=== PATIENT | female | born 1955 | race Two or more races ===

== ENCOUNTER 2022-09-15 11:27 | Outpatient (REF) | payer OTHER, SELFPAY ==
--- NOTE | ~2022-09-15 | XR_ITS ---
EXAMINATION: XR WRIST, LEFT CLINICAL INFORMATION: Pain in unspecified wrist. COMPARISON: None available. TECHNIQUE: PA, lateral, and oblique views of the left wrist. FINDINGS: There is increased sclerosis in the distal radius with some periosteal reaction best appreciated along the dorsal aspect of the distal radius suggesting a subacute healing fracture, correlate with history. The distal radioulnar joint and radiocarpal joints appear intact. There are degenerative changes in the first carpometacarpal joint. XR/XR wrist LT min 3V IMPRESSION: There is increased sclerosis in the distal radius with some periosteal reaction best appreciated along the dorsal aspect of the distal radius suggesting a subacute healing fracture, correlate with history.
== END 2022-09-15 11:28 | disposition home or self-care (01) ==
LOC: HO.HOSX 11:27
PROVIDERS: Visit Provider Physician Assistant
DX: S52.502A Unspecified fracture of the lower end of left radius, initial encounter for closed fracture (principal)
CPT/HCPCS: 73110; 99202

== ENCOUNTER 2022-09-15 13:57 | Outpatient (AMB) | payer MEDICAID, SELFPAY ==
--- NOTE | 2022-09-15 14:04 | A.OFFVIS_ITS ---
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 Patient reports that her wrist feels better. She states she has been feeling better since she been icing her wrist. Denies numbness and tingling. Having concerns of left knee pain for 3 months. 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 The patient reports an injury to her wrist on 07/29/2022 status post a fall where she hit a brick wall. She states the wrist has improved. She confirms she has been icing the wrist. She denies numbn ess or tingling. She states she was seen for the wrist and was told there was nothing wrong with it and she was placed in a splint. She reports pain in the left knee for the past 3 months. 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 Review of Systems Const All systems reviewed & are unremarkable except as noted in HPI and below Physical Exam Const General: cooperative, healthy appearing, comfortable, no acute distress, well developed and alert Orientation/consciousness: patient oriented x3 HEENT Head: Yes normal to inspection, Yes normocephalic and Yes atraumatic Eyes General: appearance normal, both eyes and all related structures Resp Effort & Inspection: normal respiratory effort and able to speak in complete sentences Cardio Rate: regular rate Peripheral pulses: Peripheral pulses 2+ throughout GI Palpation (GI): Soft to palpation Skin Lesions: no lesions Rashes: no rashes Neuro General: patient oriented x3 Extrem Other: Left wrist: Normal to inspection. No ecchymosis, erythema, or edema. Able to perform full finger flexion, extension, abduction, adduction, finger cross, okay sign, and thumbs up without deficit. Able to make a closed fist. Sensation intact. Capillary refill is brisk. Radial pulse intact. Assessment & Plan Assessment & Plan (1) Fracture of left distal radius: Code(s): S52.502A - Unspecified fracture of the lower end of left radius, initial encounter for closed fracture Plan Ms. Lugo is a 66-year-old female who presents in the office today, as a new patient, for an evaluation of left wrist pain. The patient reports an injury to her wrist on 07/29/2022 status post a fall where she hit a brick wall. She states the wrist has improved. She confirms she has been icing the wrist. She denies numbness or tingling. She states she was seen for the wrist and was told there was nothing wrong with it and she was placed in a splint. She reports pain in the left knee for the past 3 months. The patient will continue to return to normal activities. She will be seen tomorrow for further evaluation of her left knee. Follow up will be PRN for the left wrist, or sooner if needed. X-rays of the left wrist which were obtained while in the office today and were reviewed by me, Aissatou Dupont PA-C, revealed evidence of a prior distal radius fracture of indeterminate age. Orders: Orders XR wrist LT min 3V 09/15/22 M25.539 - Pain in unspecified wrist Patient Instructions: Scribed for Aissatou Dupont PA-C by Laurita Wong administrative medical director, on 09/15/2022 at 1:59 pm, EST. Your attestation Coding Level of Care Code New Pt Level 4 (19804) Diagnoses Fracture of left distal radius S52.502A
== END 2022-09-15 15:01 | disposition home or self-care (01) ==
PROVIDERS: PCP Internal Medicine; Visit Provider Physician Assistant
DX: S52.502A Unspecified fracture of the lower end of left radius, initial encounter for closed fracture (principal); M25.562 Pain in left knee
CPT/HCPCS: 99204

== ENCOUNTER 2022-09-16 09:35 | Outpatient (REF) | payer OTHER, SELFPAY ==
--- NOTE | ~2022-09-16 | XR_ITS ---
X-RAY LEFT KNEE X-RAY AP STANDING VIEW BOTH KNEES CLINICAL HISTORY: Pain. COMPARISON: Radiographs right knee and AP standing view of both knees 08/31/2016. TECHNIQUE: 2 views left knee. AP standing view of both knees. FINDINGS: Moderate joint space narrowing of the medial compartment of the left knee, progressed compared to 08/31/2016. Mild joint space narrowing of the medial compartment of the right knee. Small marginal osteophytes in the medial compartment of both knees. No erosions or chondrocalcinosis. No fractures or subluxation. Small joint effusion in the left knee. XR/XR knee LT 2V IMPRESSION: 1. Moderate degenerative osteoarthritis of the medial compartment of the left knee, increased since 2017. 2. Mild degenerative osteoarthritis of the medial compartment of the right knee. 3. Small left knee joint effusion.
--- NOTE | ~2022-09-16 | XR_ITS ---
X-RAY LEFT KNEE X-RAY AP STANDING VIEW BOTH KNEES CLINICAL HISTORY: Pain. COMPARISON: Radiographs right knee and AP standing view of both knees 08/31/2016. TECHNIQUE: 2 views left knee. AP standing view of both knees. FINDINGS: Moderate joint space narrowing of the medial compartment of the left knee, progressed compared to 08/31/2016. Mild joint space narrowing of the medial compartment of the right knee. Small marginal osteophytes in the medial compartment of both knees. No erosions or chondrocalcinosis. No fractures or subluxation. Small joint effusion in the left knee. XR/XR knee standing BI IMPRESSION: 1. Moderate degenerative osteoarthritis of the medial compartment of the left knee, increased since 2017. 2. Mild degenerative osteoarthritis of the medial compartment of the right knee. 3. Small left knee joint effusion.
== END 2022-09-16 09:36 | disposition home or self-care (01) ==
LOC: HO.HOSX 09:35
PROVIDERS: PCP Internal Medicine; Visit Provider Physician Assistant
DX: M17.12 Unilateral primary osteoarthritis, left knee (principal)
CPT/HCPCS: 20610; 73560; 73565; 99212; J1040

== ENCOUNTER 2022-09-16 09:35 | Outpatient (AMB) | payer OTHER, SELFPAY ==
--- NOTE | 2022-09-16 09:42 | A.OFFVIS_ITS ---
Intake Vital Signs 09/16/22 09:44 Height 5 ft Weight 176 lb BMI 34.4 Intake Visit Reasons: New Prob - left knee pain Intake Note: Coleen is a 66 year old female who presents today for a new problem visit with complaints of left knee pain. Patient reports that she has had left knee pain for about 2 months now. She has hisotry of right knee with KI. No history of injections. She has increased pain while climbing stairs and squatting. She takes tylenol for her pain which gives mild relief, she utilized heat and cold application along with bengay. Allergies cat dander [CAT] Allergy (Unknown, Verified 09/16/22 09:47) PND,COUGH dog dander [DOG] Allergy (Unknown, Verified 09/16/22 09:47) PND,COUGH cats and dogs Allergy (Unknown, Uncoded 09/16/22 09:47) Rash HPI New Prob - left knee pain HPI Details 66-year-old female who presents in the office today for an evaluation of left knee pain. The patient reports her left knee pain began around 2 months ago, in 07/2022. She has no history of cortisone injections. She claims to have increased pain with climbing stairs and squatting. She confirms taking Tylenol for her pain with mild relief. She has also used heat and cold applications with Bengay. Patient has a right knee arthroscopy with Dr. Hamilton. 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 No ecchymosis, erythema, or joint effusion. No tenderness to palpation to the medial or lateral joint lines. Full knee extension and flexion. NVI. Psych Mental Status: mental status grossly normal Office Procedures Joint Injection/Drain Joint Injection/Drain Primary Site: left knee Prep: site was prepped using aseptic technique, ethochloride spray was applied and injection warnings given Injected: 80 mg of, DepoMedrol, with 8 mL of (2% plain lido ) and in the joint Approach Used: anterolateral Procedure: The patient tolerated the procedure well, but had some pain with the injection and there was some relief with the local anesthesia Coding 85151 - Large joint Procedure code (CPT) selection complete Results Reviewed Results Reviewed: 09/16/22 10:01 BUPivacaine MPF 0.25 % [Sensorcaine-MPF 0.25% 10 ML] 10 ml .ROUTE .STK-MED ONE Lidocaine HCl 2 % MPF [Xylocaine 2 % MPF] 5 ml .ROUTE .STK-MED ONE methylPREDNISolone acetate [DEPO-MedroL] 80 mg .ROUTE .STK-MED ONE Assessment & Plan Assessment & Plan (1) Osteoarthritis of left knee: Code(s): M17.12 - Unilateral primary osteoarthritis, left knee Plan Ms. Lugo is a 66-year-old female who presents in the office today for an evaluation of left knee pain. The patient reports her left knee pain began around 2 months ago, in 07/2022. She has no history of cortisone injections. She claims to have increased pain with climbing stairs and squatting. She confirms taking Tylenol for her pain with mild relief. She has also used heat and cold applications with Bengay. Patient has a right knee arthroscopy with Dr. Hamilton. The patient was offered a cortisone injection in the left knee with 80 mg of DepoMedrol. The patient was explained the risk, benefits, and alternatives to receiving this injection. After receiving consent for the injection, the patient had the procedure done while in office today. The patient tolerated the procedure well with no complications. I discussed the role of cortisone injections verses left knee arthroplasty. Follow up will be PRN, or sooner if needed. X-rays of the left knee which were obtained while in the office today and were reviewed by me, Aissatou Dupont PA-C, revealed left knee osteoarthritis. Orders: Orders XR knee LT 2V Today M25.569 - Pain in unspecified knee XR knee standing BI Today M25.569 - Pain in unspecified knee Patient Instructions: Scribed for Aissatou Dupont PA-C by Laurita Wong medical director/head team physician, on 09/15/2022 at 9:38 am, EST. Your attestation Coding Level of Care Code Est Pt Level 3 (16373) Diagnoses Osteoarthritis of left knee M17.12 CPT Codes Coding - 38120 Large joint: 60960 - Large joint ([id number])
[2022-09-16 09:44] VITALS: BMI 34.4
== END 2022-09-16 10:08 | disposition home or self-care (01) ==
PROVIDERS: PCP Internal Medicine; Visit Provider Physician Assistant
DX: M17.12 Unilateral primary osteoarthritis, left knee (principal)
CPT/HCPCS: 20610; 99213

== ENCOUNTER 2023-01-18 15:00 | Outpatient (RCR) | payer MEDICARE, OTHER, MEDICAID, SELFPAY | END 2023-03-03 13:58 | disposition home or self-care (01) | LOC: HO.PT 15:00 | PROVIDERS: PCP Internal Medicine; Visit Provider Student in an Organized Health Care Education/Training Program | DX: M25.512 Pain in left shoulder (principal) | CPT/HCPCS: 97012; 97014; 97110; 97140; 97161 ==

== ENCOUNTER 2023-02-18 12:41 | Outpatient (AMB) | payer OTHER, SELFPAY ==
--- NOTE | 2023-02-18 12:47 | A.OFFVIS_ITS ---
Intake Intake Visit Reasons: ov- left knee pain Intake Note: Coleen is a 66 year old female who presents today for a follow visit of left knee pain, last inj 09/16/22. Patient reports her last injection gave her 4 months of relief and would like to repeat. Allergies cat dander [CAT] Allergy (Unknown, Verified 02/18/23 12:47) PND,COUGH dog dander [DOG] Allergy (Unknown, Verified 02/18/23 12:47) PND,COUGH cats and dogs Allergy (Unknown, Uncoded 09/16/22 09:47) Rash HPI ov- left knee pain HPI Details 67-year-old female who presents in the [facility] today for a follow up of left knee pain, which began around 07/2022. The patient last saw me in the office on 09/16/2022 where she was given a cortisone injection in the left knee. She claims this injection gave her about 4 months of relief. 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 No ecchymosis, erythema, or joint effusion. No tenderness to palpation to the medial or lateral joint lines. Full knee extension and flexion. NVI. Office Procedures Joint Injection/Drain Joint Injection/Drain Primary Site: left knee Prep: site was prepped using aseptic technique, ethochloride spray was applied and injection warnings given Injected: 80 mg of, DepoMedrol, with 8 mL of (2% plain lido ) and in the joint Approach Used: anterolateral Procedure: The patient tolerated the procedure well, but had some pain with the injection and there was some relief with the local anesthesia Coding 07888 - Large joint Procedure code (CPT) selection complete Assessment & Plan Assessment & Plan (1) Osteoarthritis of left knee: Code(s): M17.12 - Unilateral primary osteoarthritis, left knee Qualifiers: Osteoarthritis type: unspecified Qualified Code(s): M17.12 - Unilateral primary osteoarthritis, left knee Plan Ms. Lugo is a 67-year-old female who presents in the office today for a follow up of left knee pain, which began around 07/2022. The patient last saw me in the office on 09/16/2022 where she was given a cortisone injection in the left knee. She claims this injection gave her about 4 months of relief. The patient was offered a cortisone injection in the left knee with 80 mg of DepoMedrol. The patient was explained the risk, benefits, and alternatives to receiving this injection. After receiving consent for the injection, the patient had the procedure done while in office today. The patient tolerated the procedure well with no complications. Follow up will be PRN, or sooner if needed. Patient Instructions: Scribed for Aissatou Dupont PA-C by Laurita Wong medical assistant supervisor, on 02/18/2023 at 12:46 pm. EST. Coding Level of Care Code Est Pt Level 3 (39840) Diagnoses Osteoarthritis of left knee, unspecified osteoarthritis type M17.12 Osteoarthritis type: unspecified CPT Codes Coding - 91593 Large joint: 41189 - Large joint ([id number])
== END 2023-02-18 13:24 | disposition home or self-care (01) ==
PROVIDERS: PCP Internal Medicine; Visit Provider Physician Assistant
DX: M17.12 Unilateral primary osteoarthritis, left knee (principal)
CPT/HCPCS: 20610; 99213

== ENCOUNTER → 2023-02-18 12:41 | Outpatient (BNVA) | payer OTHER, SELFPAY | PROVIDERS: PCP Internal Medicine; Visit Provider Physician Assistant | DX: M17.12 Unilateral primary osteoarthritis, left knee (principal) | CPT/HCPCS: 20610; 99212; J1040 ==

== ENCOUNTER 2023-03-25 09:14 | Outpatient (AMB) | payer OTHER, SELFPAY ==
--- NOTE | 2023-03-25 09:17 | MHC.OFFVIS ---
Intake Vital Signs 03/25/23 09:18 Height 5 ft Weight 174 lb BMI 34.0 Intake Visit Reasons: Newprob- B/L Shoulder trigger pain Intake Note: Coleen 67 yr old female who is right hand dominant presents today a new problem visit for bilateral shoulder pain. States her right is worse. States her pain is mainly between her shoulder blades. Pain inbetween her shoulder wakes her up at night along with numbness and tingling in right hand. Right arm ROM is good but painful. Denies any recent injury or surgery. Hx of lumbar and neck pain as well. Allergies cat dander [CAT] Allergy (Unknown, Verified 03/25/23 09:22) PND,COUGH dog dander [DOG] Allergy (Unknown, Verified 03/25/23 09:22) PND,COUGH cats and dogs Allergy (Unknown, Uncoded 03/25/23 09:22) Rash Medication List - Last Reconciled 03/25/23 by Soledad Flaherty MD cholecalciferol (vitamin D3) 10 mcg PO DAILY losartan 25 mg PO DAILY rosuvastatin 10 mg PO DAILY HPI HPI Comments History of Present Illness Details Points to right trapezius, going down to scapular area. Feels tight with ROM of shoulder. Been going on for almost a year. No inciting injuries. Past cervical epidural at [facility] helped for left side and neck pain, more than a year ago, but didn't help with the right side. Hand numbness, only bothers when sleeping, occasional. Denies weakness. Treatment done so far: therapy - just finished December 2022 goes to chiropractor - no manipulation, mostly massage injection - epidural cervical and lumbar at [facility] No EMG. No trigger point injections. No TENS unit. No injection to shoulder. No shoulder MRI. History of lower back pain, improved at [facility]. Referred here because it is closer to her house. [facility] Medical History (Updated 03/25/23 @ 09:59 by Soledad Flaherty MD) History of high blood pressure Social History (Updated 03/25/23 @ 09:23 by Layne Subramanian [facility] Alcohol intake: never Patient Tobacco Use Status: Never used Tobacco Current occupational status: retired Current occupation: right hand dominant Review of Systems Const All systems reviewed & are unremarkable except as noted in HPI and below Physical Exam Vital Signs: BMI result Body Mass Index 34.0 Constitutional: Patient appears to be in no acute distress, well nourished and well developed. Patient was appropriately conversant and oriented. Good historian. MSK: Inspection reveals appropriate head and neck positioning. Tight and tender on right upper trapezius and right rhomboids. Cervical ROM was full. Spurling's sign negative. Bilateral shoulder, elbow and wrist ROM WNL. No ligamentous laxity or crepitance. No increased effusion. Negative Brown sign, empty can sign, Speed's test. No specific abnormalities or instability found on inspection and palpation of the spine and extremities. Strength is 5/5 in all muscle groups tested. No increased tone noted. Neurological: Neurologic examination of the upper and lower extremities was nonfocal with intact sensation, muscle stretch reflexes and without focal motor deficits . Nguyen?s negative bilaterally. Babinski was down going bilaterally. Clonus was negative. Gait is non-antalgic without loss of balance. Results Reviewed Results Reviewed: I reviewed records from the following: Physical therapy notes dated 12/30/2022, [facility]-diagnosis; left shoulder pain, bilateral scapular dysfunction, right shoulder subacromial impingement. 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 Patient was referred by Norberto Singh D.O. of [facility]. Assessment & Plan Assessment & Plan (1) Myofascial pain: Code(s): M79.18 - Myalgia, other site Plan Showing signs of myofascial pain, affecting right upper trapezius and rhomboid muscles. No signs of cervical myelopathy or radiculopathy, no signs of lumbar radiculopathy, despite history of neck pain and back pain. Apparently neck and back pain has been treated appropriately at [facility]. However she continues to show myofascial pain on areas mentioned earlier. We could trial trigger point injections. Discussed with patient how this is done. To be scheduled. Patient eager to proceed. May continue chiropractor for massage and heat. Would avoid cervical manipulation. Assessment and plan discussed with patient, and patient was agreeable. All questions were answered thoroughly. Soledad Flaherty MD, JENNIFER Board Certified, [place] [employer] and Rehabilitation (ABPMR) Board Certified, [place] [employer] Electrodiagnostic Medicine (ABEM) Coding Level of Care Code New Pt Level 4 (10250) Diagnoses Myofascial pain M79.18
[2023-03-25 09:18] VITALS: BMI 34.0
== END 2023-03-25 09:39 | disposition home or self-care (01) ==
PROVIDERS: PCP Internal Medicine; Visit Provider Physical Medicine & Rehabilitation
DX: M79.18 Myalgia, other site (principal)
CPT/HCPCS: 99204

== ENCOUNTER → 2023-03-25 09:14 | Outpatient (BNVA) | payer OTHER, SELFPAY | PROVIDERS: PCP Internal Medicine; Visit Provider Physical Medicine & Rehabilitation | DX: M79.18 Myalgia, other site (principal) | CPT/HCPCS: 99202 ==

== ENCOUNTER 2023-04-14 09:46 | Outpatient (AMB) | payer OTHER, SELFPAY ==
--- NOTE | 2023-04-14 09:50 | A.OFFVIS_ITS ---
Intake Intake Visit Reasons: OV-B/L Shoulder trigger injection #1 Intake Note: Coleen is a 67 year old right hand dominant female who presents today for a follow up of her Trapezius and Rhomboid myofascial pain. Today she will be getting trigger point injection #1. She states that her pain hasnt changed since her last visit. Allergies cat dander [CAT] Allergy (Unknown, Verified 04/14/23 10:28) PND,COUGH dog dander [DOG] Allergy (Unknown, Verified 04/14/23 10:28) PND,COUGH cats and dogs Allergy (Unknown, Uncoded 03/25/23 09:22) Rash HPI HPI Comments History of Present Illness Details Here for trigger point injection #1 [facility] Medical History (Updated 03/25/23 @ 09:59 by Soledad Flaherty MD) History of high blood pressure Social History Alcohol intake: never Patient Tobacco Use Status: Never used Tobacco Current occupational status: retired Current occupation: right hand dominant Office Procedures Therapeutic Injection Therapeutic Injection Details: Trigger point injection, bilateral upper trapezius and right rhomboid. Conset obtained. Trigger points palpated on: 1 on left upper trapezius, 1 in right upper trapezius and 1 on right rhomboids. 1 ml of 2% Lidocaine injected in each site, total of 3 mL. Patient tolerated procedure well. Post-injection instructions given. [id number]-[id number] Point Injection =/>3 sites All charges added?: Procedure code (CPT) selection complete Assessment & Plan Assessment & Plan (1) Myofascial pain: Code(s): M79.18 - Myalgia, other site Plan Tolerated procedure well. Post-injection instructions given. Assessment and plan discussed with patient, and patient was agreeable. All questions were answered thoroughly. Soledad Flaherty MD, JENNIFER Board Certified, [place] [employer] and [employer] (ABPMR) Board Certified, [place] [employer] Electro[employer]ostic [employer] (ABEM) Orders: Orders Trigger Point Injection Today M79.18 - Myalgia, other site Coding Level of Care Code Procedure Only Diagnoses Myofascial pain M79.18 CPT Codes Therapeutic Injection - Ther Injection 2: [id number]-[id number] Point Injection =/>3 sites ([id number])
== END 2023-04-14 10:15 | disposition home or self-care (01) ==
PROVIDERS: PCP Internal Medicine; Visit Provider Physical Medicine & Rehabilitation
DX: M79.18 Myalgia, other site (principal); M25.511 Pain in right shoulder; M25.512 Pain in left shoulder
CPT/HCPCS: 20553

== ENCOUNTER → 2023-04-14 09:46 | Outpatient (BNVA) | payer OTHER, SELFPAY | PROVIDERS: PCP Internal Medicine; Visit Provider Physical Medicine & Rehabilitation | DX: M79.18 Myalgia, other site (principal) | CPT/HCPCS: 20553 ==

== ENCOUNTER 2023-04-21 10:49 | Outpatient (AMB) | payer OTHER, SELFPAY ==
--- NOTE | 2023-04-21 11:08 | MHC.OFFVIS ---
Intake Intake Visit Reasons: OV-B/L Shoulder trigger injection #2/ Confirmed Intake Note: Coleen is a 67 year old right hand dominant female who presents today for trigger point injection #2, patient reports that the last injection Allergies cat dander [CAT] Allergy (Unknown, Verified 04/14/23 10:28) PND,COUGH dog dander [DOG] Allergy (Unknown, Verified 04/14/23 10:28) PND,COUGH cats and dogs Allergy (Unknown, Uncoded 03/25/23 09:22) Rash HPI HPI Comments History of Present Illness Details Here for trigger point injection #2. Tolerated procedure last week, no complications. Left side feels better. Right rhomboids continue to bother her. [facility] Medical History (Updated 03/25/23 @ 09:59 by Soledad Flaherty MD) History of high blood pressure Social History Alcohol intake: never Patient Tobacco Use Status: Never used Tobacco Current occupational status: retired Current occupation: right hand dominant Office Procedures Therapeutic Injection Therapeutic Injection Details: Trigger point injection, bilateral upper trapezius and right rhomboid. Conset obtained. Trigger points palpated on: 1 on left upper trapezius, 1 on right upper trapezius and 1 on right rhomboids. 1 ml of 2% Lidocaine injected in each site, total of 3 mL. Patient tolerated procedure well. Post-injection instructions given. 78712-Kdqwhzr Point Injection =/>3 sites All charges added?: Procedure code (CPT) selection complete Assessment & Plan Assessment & Plan (1) Myofascial pain: Code(s): M79.18 - Myalgia, other site Plan Tolerated procedure well. Post-injection instructions given. Assessment and plan discussed with patient, and patient was agreeable. All questions were answered thoroughly. Soledad Flaherty MD, JENNIFER Board Certified, [place] [employer] and Rehabilitation (ABPMR) Board Certified, [place] Board [employer] Electrodiagnostic Medicine (ABEM) Orders: Orders Trigger Point Injection Today M79.18 - Myalgia, other site Coding Level of Care Code Procedure Only Diagnoses Myofascial pain M79.18 CPT Codes Therapeutic Injection - Ther Injection 2: 64759-Eerzugc Point Injection =/>3 sites ([id number])
== END 2023-04-21 11:35 | disposition home or self-care (01) ==
PROVIDERS: PCP Internal Medicine; Visit Provider Physical Medicine & Rehabilitation
DX: M79.18 Myalgia, other site (principal); M25.511 Pain in right shoulder; M25.512 Pain in left shoulder
CPT/HCPCS: 20553

== ENCOUNTER → 2023-04-21 10:49 | Outpatient (BNVA) | payer OTHER, SELFPAY | PROVIDERS: PCP Internal Medicine; Visit Provider Physical Medicine & Rehabilitation | DX: M79.18 Myalgia, other site (principal) | CPT/HCPCS: 20553 ==

== ENCOUNTER 2023-05-12 09:25 | Outpatient (REF) | payer OTHER, SELFPAY ==
--- NOTE | ~2023-05-12 | XR_ITS ---
EXAMINATION: XR CERVICAL SPINE CLINICAL INFORMATION: Radiculopathy COMPARISON: Cervical spine x-rays April 16, 2021 TECHNIQUE: 3 views of the cervical spine were obtained. FINDINGS: The cervical spine is visualized in its entirety. There is similar minimal anterolisthesis of C7 on T1. Alignment is otherwise unremarkable. Normal C1/2 articulation. Cervical vertebral body heights are maintained. There is similar mild disc space narrowing at the C5/6 and C6/7 levels. Small osteophytes are noted within the mid and lower cervical spine. There is no prevertebral soft tissue swelling. Soft tissue calcifications to the left of the cervical spine are likely vascular in nature. Visualized lung apices are well aerated. XR/XR cervical spine 3V IMPRESSION: Similar mild degenerative changes of the cervical spine. No compression deformity.
== END 2023-05-12 09:26 | disposition home or self-care (01) ==
LOC: HO.HOSX 09:25
PROVIDERS: PCP Internal Medicine; Visit Provider Physical Medicine & Rehabilitation
DX: M54.12 Radiculopathy, cervical region (principal); M79.18 Myalgia, other site; G24.3 Spasmodic torticollis
CPT/HCPCS: 72040; 99212

== ENCOUNTER 2023-05-12 09:25 | Outpatient (AMB) | payer OTHER, SELFPAY ==
--- NOTE | 2023-05-12 09:33 | MHC.OFFVIS ---
Intake Intake Visit Reasons: OV-B/L Shoulder trigger injection #3 Intake Note: Coleen is a 67 year old right hand dominant female who presents today for a follow up of her Trapezius and Rhomboid myofascial pain. Patient reports that she took a fall quite some time ago while going down stairs and hit the right shoulder blade and she is worried that this is attributing to the pain she feels in bilateral trapezius. She would like to discuss futher injections as she is unsure if she would benefit from more Allergies cat dander [CAT] Allergy (Unknown, Verified 04/14/23 10:28) PND,COUGH dog dander [DOG] Allergy (Unknown, Verified 04/14/23 10:28) PND,COUGH cats and dogs Allergy (Unknown, Uncoded 03/25/23 09:22) Rash HPI HPI Comments History of Present Illness Details Points to right trapezius, going down to scapular area. Feels tight with ROM of shoulder. Been going on for almost a year. No inciting injuries. Past cervical epidural at [facility] helped for left side and neck pain, more than a year ago, but didn't help with the right side. Hand numbness, only bothers when sleeping, occasional. Denies weakness. Treatment done so far: therapy - just finished December 2022 goes to chiropractor - no manipulation, mostly massage injection - epidural cervical and lumbar at [facility] No EMG. No trigger point injections. No TENS unit. No injection to shoulder. No shoulder MRI. History of lower back pain, improved at [facility]. Referred here because it is closer to her house. Per my exam, I thought the pain was coming from myofascial right more than left upper trapezius. She does not show any signs of rotator cuff injury or cervical radiculitis. We tried to trigger point injections. Left side feels much better. Continues to have a stubborn trigger point in right upper trapezius. She wants to explore other options. [facility] Medical History (Updated 05/12/23 @ 09:51 by Soledad Flaherty MD) History of high blood pressure Social History Alcohol intake: never Patient Tobacco Use Status: Never used Tobacco Current occupational status: retired Current occupation: right hand dominant Physical Exam Constitutional: Patient appears to be in no acute distress, well nourished and well developed. Patient was appropriately conversant and oriented. Good historian. MSK: Inspection reveals appropriate head and neck positioning. Tight and tender on right upper trapezius and right rhomboids. Cervical ROM was full. Spurling's sign negative. Bilateral shoulder, elbow and wrist ROM WNL. No ligamentous laxity or crepitance. No increased effusion. Negative Brown sign, empty can sign, Speed's test. Strength is 5/5 in all muscle groups tested. No increased tone noted. Neurological: Neurologic examination of the upper and lower extremities was nonfocal with intact sensation, muscle stretch reflexes and without focal motor deficits . Nguyen?s negative bilaterally. Gait is non-antalgic without loss of balance. 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 Possible spasmodic torticollis. We might explore possibility of doing botulinum toxin injection to right upper trapezius. Patient will think about this further. We discussed briefly how to do the injections and pros and cons. We will also further investigate cervical spine. We will do x-rays today. Possible referral to pain management for facet injections. Assessment and plan discussed with patient, and patient was agreeable. All questions were answered thoroughly. We will touch base via phone next week. Soledad Flaherty MD, JENNIFER Board Certified, [place] Board [employer] Medicine and Rehabilitation (ABPMR) Board Certified, [place] Board [employer] Electrodiagnostic Medicine (ABEM) Orders: Orders XR cervical spine 3V Today M54.12 - Radiculopathy, cervical region Coding Level of Care Code Est Pt Level 4 (98094) Diagnoses Myofascial pain M79.18 Spasmodic torticollis G24.3 Cervical radicular pain M54.12
== END 2023-05-12 11:03 | disposition home or self-care (01) ==
PROVIDERS: PCP Internal Medicine; Visit Provider Physical Medicine & Rehabilitation
DX: M79.18 Myalgia, other site (principal); G24.3 Spasmodic torticollis; M54.12 Radiculopathy, cervical region
CPT/HCPCS: 99214

== ENCOUNTER 2023-05-19 09:47 | Outpatient (AMB) | payer OTHER, SELFPAY ==
--- NOTE | 2023-05-19 09:51 | MHC.OFFVIS ---
Intake Vital Signs 05/19/23 09:53 Height 5 ft Weight 174 lb BMI 34.0 Intake Visit Reasons: OV- Dx INJ for Neck/ Shoulder pain Intake Note: Coleen is a 67 year old right hand dominant female who presents today for a follow up of her Trapezius and Rhomboid myofascial pain. Patient reports that she took a fall quite some time ago while going down stairs and hit the right shoulder blade and she is worried that this is attributing to the pain she feels in bilateral trapezius. She would like to discuss futher injections in form of botox or [facility] referral Information Interpreted: non-clinical & clinical Accompanied by: Self / Same As Patient Allergies cat dander [CAT] Allergy (Unknown, Verified 05/19/23 09:54) PND,COUGH dog dander [DOG] Allergy (Unknown, Verified 05/19/23 09:54) PND,COUGH cats and dogs Allergy (Unknown, Uncoded 05/19/23 09:54) Rash Medication List - Last Reconciled 05/19/23 by Soledad Flaherty MD cholecalciferol (vitamin D3) 10 mcg PO DAILY losartan 25 mg PO DAILY rosuvastatin 10 mg PO DAILY HPI HPI Comments History of Present Illness Details Points to right trapezius, going down to scapular area. Feels tight with ROM of shoulder. Been going on for almost a year. No inciting injuries. Past cervical epidural at [facility] helped for left side and neck pain, more than a year ago, but didn't help with the right side. Hand numbness, only bothers when sleeping, occasional. Denies weakness. Treatment done so far: therapy - just finished December 2022 goes to chiropractor - no manipulation, mostly massage injection - epidural cervical and lumbar at [facility] No EMG. No trigger point injections. No TENS unit. No injection to shoulder. No shoulder MRI. History of lower back pain, improved at [facility]. Referred here because it is closer to her house. Per my exam, I thought the pain was coming from myofascial right more than left upper trapezius. She does not show any signs of rotator cuff injury or cervical radiculitis. We have already tried trigger point injections. Left side feels much better. Continues to have a stubborn trigger point in right upper trapezius. She wants to explore other options. X-ray cervical spine did not show any fracture. Seen degenerative changes seen on past images. [facility] Medical History (Updated 05/12/23 @ 09:51 by Soledad Flaherty MD) History of high blood pressure Social History Alcohol intake: never Patient Tobacco Use Status: Never used Tobacco Current occupational status: retired Current occupation: right hand dominant Physical Exam Vital Signs: BMI result Body Mass Index 34.0 Constitutional: Patient appears to be in no acute distress, well nourished and well developed. Patient was appropriately conversant and oriented. Good historian. MSK: Inspection reveals appropriate head and neck positioning. Tight and tender on right upper trapezius and right rhomboids. Cervical ROM was full. Spurling's sign negative. Bilateral shoulder, elbow and wrist ROM WNL. No ligamentous laxity or crepitance. No increased effusion. Negative Brown sign, empty can sign, Speed's test. Strength is 5/5 in all muscle groups tested. No increased tone noted. Neurological: Neurologic examination of the upper and lower extremities was nonfocal with intact sensation, muscle stretch reflexes and without focal motor deficits . Nguyen?s negative bilaterally. Gait is non-antalgic without loss of balance. Office Procedures Therapeutic Injection Therapeutic Injection Details: Trigger point injection, right upper trapezius and rhomboids. Consult obtained. Trigger points palpated on 3 on right upper trapezius and 1 on right rhomboids. 1 ml of 2% Lidocaine injected in each site, total of 4 mL. Patient tolerated procedure well. Post-injection instructions given. 44328-Afezmuq Point Injection =/>3 sites All charges added?: Procedure code (CPT) selection complete Results Reviewed Results Reviewed: Ordering Physician: Soledad Prieto Date of Service: 05/12/23 Procedure(s): XR cervical spine 3V Accession Number(s): [id number] cc: Andree Spann MD; Soledad Prieto~ EXAMINATION: XR CERVICAL SPINE CLINICAL INFORMATION: Radiculopathy COMPARISON: Cervical spine x-rays April 16, 2021 TECHNIQUE: 3 views of the cervical spine were obtained. FINDINGS: The cervical spine is visualized in its entirety. There is similar minimal anterolisthesis of C7 on T1. Alignment is otherwise unremarkable. Normal C1/2 articulation. Cervical vertebral body heights are maintained. There is similar mild disc space narrowing at the C5/6 and C6/7 levels. Small osteophytes are noted within the mid and lower cervical spine. There is no prevertebral soft tissue swelling. Soft tissue calcifications to the left of the cervical spine are likely vascular in nature. Visualized lung apices are well aerated. XR/XR cervical spine 3V IMPRESSION: Similar mild degenerative changes of the cervical spine. No compression deformity. Assessment & Plan Assessment & Plan (1) Spasmodic torticollis: Code(s): G24.3 - Spasmodic torticollis (2) Myofascial pain: Code(s): M79.18 - Myalgia, other site Plan Continues to have stubborn trigger point on right upper trapezius. No signs of cervical radiculopathy or myelopathy on exam today. Suggested a trial series of trigger point injections again, starting today. If still does not improve, we talked about trial of botulinum toxin injection. Another option is referral to pain management for cervical facet injection, which we agreed to defer for now until we trial trigger point injections or Botox injections 1st. Patient tolerated procedure well. Assessment and plan discussed with patient, and patient was agreeable. All questions were answered thoroughly. Soledad Flaherty MD, JENNIFER Board Certified, [place] Board [employer] Physical Medicine and Rehabilitation (ABPMR) Board Certified, [place] Board of Electrodiagnostic Medicine (ABEM) Orders: Orders Trigger Point Injection Today G24.3 - Spasmodic torticollis, M79.18 - Myalgia, other site Coding Level of Care Code Est Pt Level 3 (99728) Diagnoses Spasmodic torticollis G24.3 Myofascial pain M79.18 CPT Codes Therapeutic Injection - Ther Injection 2: 69577-Jgnpmlc Point Injection =/>3 sites ([id number])
[2023-05-19 09:53] VITALS: BMI 34.0
== END 2023-05-19 10:16 | disposition home or self-care (01) ==
PROVIDERS: PCP Internal Medicine; Visit Provider Physical Medicine & Rehabilitation
DX: G24.3 Spasmodic torticollis (principal); M79.18 Myalgia, other site; M25.511 Pain in right shoulder
CPT/HCPCS: 20553; 99213

== ENCOUNTER → 2023-05-19 09:47 | Outpatient (BNVA) | payer OTHER, SELFPAY | PROVIDERS: PCP Internal Medicine; Visit Provider Physical Medicine & Rehabilitation | DX: M79.18 Myalgia, other site (principal); G24.3 Spasmodic torticollis | CPT/HCPCS: 20553; 99212 ==

== ENCOUNTER 2023-05-26 10:40 | Outpatient (AMB) | payer OTHER, SELFPAY ==
--- NOTE | 2023-05-26 10:55 | A.OFFVIS_ITS ---
Intake Intake Visit Reasons: OV - Trigger Point Injection Right Shoulder Intake Note: Coleen is a 67 year old right hand dominant female who presents today for right trigger point injection, last injection was 05/19/23. Patient reports her last injection gave her relief. She is still having discomfort when she is moving her neck. Patient would like to repeat the injection today. Allergies cat dander [CAT] Allergy (Unknown, Verified 05/26/23 10:58) PND,COUGH dog dander [DOG] Allergy (Unknown, Verified 05/26/23 10:58) PND,COUGH cats and dogs Allergy (Unknown, Uncoded 05/19/23 09:54) Rash HPI HPI Comments History of Present Illness Details Noted improvement since last injection. Here for 2nd. [facility] Medical History (Updated 05/12/23 @ 09:51 by Soledad Flaherty MD) History of high blood pressure Social History Alcohol intake: never Patient Tobacco Use Status: Never used Tobacco Current occupational status: retired Current occupation: right hand dominant Office Procedures Therapeutic Injection Therapeutic Injection Details: Trigger point injection, right upper trapezius and rhomboids. Conset obtained. Trigger points palpated, 3 on right upper trapezius and 1 on right rhomboids. 1 ml of 2% Lidocaine injected in each site, total of 4 ml. Patient tolerated procedure well. Post-injection instructions given. 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 Assessment and plan discussed with patient, and patient was agreeable. All questions were answered thoroughly. Soledad Flaherty MD, JENNIFER Board Certified, [place] Board [employer] Physical Medicine and Rehabilitation (ABPMR) Board Certified, [place] Board [employer] Electrodiagnostic Medicine (ABEM) Orders: Orders Trigger Point Injection Today M79.18 - Myalgia, other site Coding Level of Care Code Procedure Only Diagnoses Myofascial pain M79.18 Spasmodic torticollis G24.3 CPT Codes Therapeutic Injection - Ther Injection 2: 13541-Rwifcjk Point Injection =/>3 sites ([id number])
== END 2023-05-26 11:29 | disposition home or self-care (01) ==
LOC: HO.HOS 10:40
PROVIDERS: PCP Internal Medicine; Visit Provider Physical Medicine & Rehabilitation
DX: M79.18 Myalgia, other site (principal); G24.3 Spasmodic torticollis
CPT/HCPCS: 20553

== ENCOUNTER → 2023-05-26 10:40 | Outpatient (BNVA) | payer OTHER, SELFPAY | PROVIDERS: PCP Internal Medicine; Visit Provider Physical Medicine & Rehabilitation | DX: M79.18 Myalgia, other site (principal); G24.3 Spasmodic torticollis | CPT/HCPCS: 20553 ==

== ENCOUNTER 2023-06-10 10:56 | Outpatient (AMB) | payer OTHER, SELFPAY ==
--- NOTE | 2023-06-10 11:00 | MHC.OFFVIS ---
Intake Intake Visit Reasons: OV - Trigger Point Injection Right Shoulder Intake Note: Coleen is a 67 year old female who presents to the office today for a trigger point injection in her right shoulder. Pts last injection was 05/26/23 and she states that she doesnt have any more numbness in her hands and she states her shoulders feel stronger. Allergies cat dander [CAT] Allergy (Unknown, Verified 06/10/23 11:02) PND,COUGH dog dander [DOG] Allergy (Unknown, Verified 06/10/23 11:02) PND,COUGH cats and dogs Allergy (Unknown, Uncoded 06/10/23 11:02) Rash Medication List - Last Reconciled 06/10/23 by Soledad Flaherty MD cholecalciferol (vitamin D3) 10 mcg PO DAILY losartan 25 mg PO DAILY rosuvastatin 10 mg PO DAILY HPI HPI Comments History of Present Illness Details Noted improvement since last injection, less tight on right upper trapezius, no more tingling on RUE. Did feel more tightness on left rhomboids. Here for 3nd. [facility] Medical History History of high blood pressure Social History Alcohol intake: never Patient Tobacco Use Status: Never used Tobacco Current occupational status: retired Current occupation: right hand dominant Office Procedures Therapeutic Injection Therapeutic Injection Details: Trigger point injection, right upper trapezius, right rhomboids, left rhomboids. Consent obtained. Trigger points palpated on right upper trapezius, right rhomboids, left rhomboids. 1 ml of 2% Lidocaine injected in each site, total of 3 mL. Patient tolerated procedure well. Post-injection instructions given. 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 Assessment and plan discussed with patient, and patient was agreeable. All questions were answered thoroughly. She will call us in 2 weeks if redevelops trigger point on right upper trapezius. If so, we will consider botulinum toxin injection. Soledad Flaherty MD, JENNIFER Board Certified, [place] Board of Physical Medicine and Rehabilitation (ABPMR) Board Certified, [place] Board of Electrodiagnostic Medicine (ABEM) Orders: Orders Trigger Point Injection Today M79.18 - Myalgia, other site Coding Level of Care Code Procedure Only Diagnoses Myofascial pain M79.18 Spasmodic torticollis G24.3 CPT Codes Therapeutic Injection - Ther Injection 2: 08850-Njmmgux Point Injection =/>3 sites ([id number])
== END 2023-06-10 11:36 | disposition home or self-care (01) ==
PROVIDERS: PCP Internal Medicine; Visit Provider Physical Medicine & Rehabilitation
DX: M25.511 Pain in right shoulder (principal); M25.512 Pain in left shoulder; M79.18 Myalgia, other site; G24.3 Spasmodic torticollis
CPT/HCPCS: 20553

== ENCOUNTER → 2023-06-10 10:56 | Outpatient (BNVA) | payer OTHER, SELFPAY | PROVIDERS: PCP Internal Medicine; Visit Provider Physical Medicine & Rehabilitation | DX: M79.18 Myalgia, other site (principal); G24.3 Spasmodic torticollis | CPT/HCPCS: 20553 ==

== ENCOUNTER 2023-07-20 15:00 | Outpatient (REF) | payer OTHER, SELFPAY ==
--- NOTE | 2023-07-20 15:05 | EMG_ITS ---
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 Trigger point palpable on right upper trapezius. TOXIN USED: Botox PROCEDURE: The procedure was explained to the patient/caregiver, and informed consent was obtained. The patient sat on bed. Trapezius muscles were cleansed with betadine in the usual sterile manner. A 28 gauge needle electrode was used. Muscle Units per site Number of sites Units per muscle Right upper trapezius 15 3 45 Left upper trapezius 15 1 15 EMG-guidance was used during the injection. A total of 60 units injected. 40 units wastage. Vial size: 100 units per vial Dilution: 100 units per 1 ml of preservative free saline The patient tolerated the procedure well without complications. The patient was observed for 30 minutes, before being discharged with post procedure instructions. CODING: CPT code: 65431 neck, exclud larynx modifier 50 bilateral Wastage: CHIVO Guidance code: 56446 EMG guidance for chemodenervation J code: Botox J0585 [facility] code: 8577-4255-83 Lot #: [id number] [facility]
== END 2023-07-20 15:01 | disposition home or self-care (01) ==
LOC: HO.NEURO 15:00
PROVIDERS: PCP Internal Medicine; Visit Provider Physical Medicine & Rehabilitation
DX: G24.3 Spasmodic torticollis (principal)
CPT/HCPCS: 64616; 95874; J0585

== ENCOUNTER → 2023-07-20 15:00 | Outpatient (BNV) | payer OTHER, SELFPAY | PROVIDERS: PCP Internal Medicine; Visit Provider Physical Medicine & Rehabilitation | DX: G24.3 Spasmodic torticollis (principal) | CPT/HCPCS: 64616; 95874 ==

== ENCOUNTER 2023-08-19 08:47 | Outpatient (AMB) | payer OTHER, SELFPAY ==
--- NOTE | 2023-08-19 08:49 | MHC.OFFVIS ---
Vital Signs 08/19/23 08:52 Height 5 ft Weight 174 lb BMI 34.0 Intake Visit Reasons: Follow up, Botox injection 07/20/23 Intake Note: Coleen is a 67 year old female who presents today for a follow up visit s/p Botox injection 07/20/23. Patient reports the injections have helped her a lot and she is doing well. Allergies cat dander [CAT] Allergy (Unknown, Verified 08/19/23 08:53) PND,COUGH dog dander [DOG] Allergy (Unknown, Verified 08/19/23 08:53) PND,COUGH cats and dogs Allergy (Unknown, Uncoded 06/10/23 11:02) Rash Medication List - Last Reconciled 08/19/23 by Soledad Flaherty MD cholecalciferol (vitamin D3) 10 mcg PO DAILY losartan 25 mg PO DAILY rosuvastatin 10 mg PO DAILY HPI Comments Details: Post botulinum toxin injection follow up. DATE OF PROCEDURE: 07/20/23 PROCEDURE PERFORMED: Botulinum toxin chemodenervation DIAGNOSIS: cervical dystonia/spasmodic torticollis ICD10: G24.3 INDICATION: spasmodic torticollis PREVIOUS TREATMENT AND RESPONSE: Trigger point injections and physical therapy without lasting response EXAM ON DAY OF PROCEDURE: Tight on upper trapezius, right worse than left. Trigger point palpable on right upper trapezius. TOXIN USED: Botox PROCEDURE: Muscle Units per site Number of sites Units per muscle Right upper trapezius 15 3 45 Left upper trapezius 15 1 15 EMG-guidance was used during the injection. A total of 60 units injected. 40 units wastage. Coleen says that she feels much better, no pain on trapezius anymore. No headaches. She is happy with improvement. No side effects or complications. She does have soreness on rhomboids which was a previous complaint and she notes that when she exercises and pays attention to posture, it gets better. [facility] Medical History History of high blood pressure Social History Alcohol intake: never Patient Tobacco Use Status: Never used Tobacco Current occupational status: retired Current occupation: right hand dominant Physical Exam Vital Signs: BMI result Body Mass Index 34.0 Constitutional: Patient appears to be in no acute distress, well nourished and well developed. Patient was appropriately conversant and oriented. Good historian. MSK: Inspection reveals appropriate head and neck positioning. No more trigger points on trapezius. Tender on rhomboids bilateral, localized area. Cervical ROM was full. Spurling's sign negative. Bilateral shoulder, elbow and wrist ROM WNL. No ligamentous laxity or crepitance. No increased effusion. Negative Brown sign, empty can sign, Speed's test. Strength is 5/5 in all muscle groups tested. No increased tone noted. Neurological: Neurologic examination of the upper and lower extremities was nonfocal with intact sensation, muscle stretch reflexes and without focal motor deficits . Nguyen?s negative bilaterally. Gait is non-antalgic without loss of balance. Office Procedures Therapeutic Injection Therapeutic Injection Details: Trigger point injection, bilateral rhomboids. Conset obtained. Trigger points palpated on bilateral rhomboids. 1 ml of 2% Lidocaine injected in each site, total of 2 mL. Patient tolerated procedure well. Post-injection instructions given. 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 No more pain or tightness there. Discussed that relief may last up to 3 months, maybe more. We would work on prior auth and scheduling her again for injection in October, but we will see if we'll need to push it back further if she is still feeling good. As for rhomboids, performed trigger point injections today. She tolerated well. Continue exercise. Watch posture. Assessment and plan discussed with patient, and patient was agreeable. All questions were answered thoroughly. Soledad Flaherty MD, JENNIFER Board Certified, [place] [employer] and Rehabilitation (ABPMR) Board Certified, [place] Board [employer] Electrodiagnostic Medicine (ABEM) Orders: Orders Trigger Point Injection Today G24.3 - Spasmodic torticollis, M79.18 - Myalgia, other site Coding Level of Care Code Est Pt Level 4 (58717) Diagnoses Myofascial pain M79.18 Spasmodic torticollis G24.3 CPT Codes Therapeutic Injection - Ther Injection 1: 39865-Syurscm Point Injection 1 or 2 sites ([id number])
[2023-08-19 08:52] VITALS: BMI 34.0
== END 2023-08-19 09:17 | disposition home or self-care (01) ==
PROVIDERS: PCP Internal Medicine; Visit Provider Physical Medicine & Rehabilitation
DX: M79.18 Myalgia, other site (principal); G24.3 Spasmodic torticollis
CPT/HCPCS: 20552; 99214

== ENCOUNTER → 2023-08-19 08:47 | Outpatient (BNVA) | payer OTHER, SELFPAY | PROVIDERS: PCP Internal Medicine; Visit Provider Physical Medicine & Rehabilitation | DX: M79.18 Myalgia, other site (principal); G24.3 Spasmodic torticollis | CPT/HCPCS: 20552; 99212 ==

== ENCOUNTER 2023-08-27 07:54 | Outpatient (AMB) | payer OTHER, SELFPAY ==
--- NOTE | 2023-08-27 07:59 | A.OFFVIS_ITS ---
Vital Signs 08/27/23 08:11 Height 5 ft Weight 174 lb BMI 34.0 Intake Visit Reasons: Inj-Left knee injection-last inj 02/18/23 Intake Note: Coleen is a 66 year old female who presents today for a repeat injection for her left knee pain, last inj 02/18/23. Patient reports her last injection gave her about 5 - 6 months relief and would like to repeat. Allergies cat dander [CAT] Allergy (Unknown, Verified 08/27/23 08:10) PND,COUGH dog dander [DOG] Allergy (Unknown, Verified 08/27/23 08:10) PND,COUGH cats and dogs Allergy (Unknown, Uncoded 06/10/23 11:02) Rash HPI HPI Inj-Left knee injection-last inj 02/18/23: Details: 67-year-old female who presents in the office today for a follow-up of left knee pain. I last saw the patient in the office on 02/18/2023, when she was administered with a left knee cortisone injection. ? While in the office today the patient reports that the last cortisone injection in the left knee provided her relief for about 5-6 months. She would like to repeat the left knee injection today.? [facility] Medical History History of high blood pressure Social History Alcohol intake: never Patient Tobacco Use Status: Never used Tobacco Current occupational status: retired Current occupation: right hand dominant Review of Systems Const All systems reviewed & are unremarkable except as noted in HPI and below Physical Exam Vital Signs: BMI result Body Mass Index 34.0 Const General: cooperative, healthy appearing and no acute distress Resp Effort & Inspection: normal respiratory effort and able to speak in complete sentences Cardio Rate: regular rate Peripheral pulses: Peripheral pulses 2+ throughout GI Palpation (GI): Soft to palpation Skin Lesions: no lesions Rashes: no rashes Extrem Other: Left knee: Normal to inspection. No ecchymosis, erythema, or joint effusion. No tenderness to palpation to the medial or lateral joint lines. Full knee extension and flexion. NVI. Office Procedures Joint Injection/Drain Joint Injection/Drain Primary Site: left knee Prep: site was prepped using aseptic technique, ethochloride spray was applied and injection warnings given Injected: 80 mg of, DepoMedrol, with 8 mL of (2% plain lido ) and in the joint Approach Used: anterolateral Procedure: The patient tolerated the procedure well, but had some pain with the injection and there was some relief with the local anesthesia Coding - Large joint Procedure code (CPT) selection complete Assessment & Plan Assessment & Plan (1) Osteoarthritis of left knee: Code(s): M17.12 - Unilateral primary osteoarthritis, left knee Category: Medical Qualifiers: Osteoarthritis type: unspecified Qualified Code(s): M17.12 - Unilateral primary osteoarthritis, left knee Plan Ms. Lugo is a 67-year-old female who presents in the office today for a follow- up of left knee pain. I last saw the patient in the office on 02/18/2023, when she was administered with a left knee cortisone injection. ? While in the office today the patient reports that the last cortisone injection in the left knee provided her relief for about 5-6 months. She would like to repeat the left knee injection today.? ? The patient was offered a?cortisone injection in the left knee with 80 mg of DepoMedrol. The patient was explained the risk, benefits, and alternatives to receiving this injection. After receiving consent for the injection, the patient had the procedure done while in the office today. The patient tolerated the procedure well with no complications. Follow-up will be PRN, or sooner if needed.? Patient Instructions: Scribed by Vincent Woods biomedical technician, for Aissatou Dupont PA-C on 08/27/2023 at?9:15 AM EST. Coding Level of Care Code Est Pt Level 3 (10983) Diagnoses Osteoarthritis of left knee, unspecified osteoarthritis type M17.12 Osteoarthritis type: unspecified CPT Codes Coding - Large joint: 55531 - Large joint ([id number])
[2023-08-27 08:11] VITALS: BMI 34.0
== END 2023-08-27 08:11 | disposition home or self-care (01) ==
PROVIDERS: PCP Internal Medicine; Visit Provider Physician Assistant
DX: M17.12 Unilateral primary osteoarthritis, left knee (principal)
CPT/HCPCS: 20610; 99213

== ENCOUNTER → 2023-08-27 07:54 | Outpatient (BNVA) | payer OTHER, SELFPAY | PROVIDERS: PCP Internal Medicine; Visit Provider Physician Assistant | DX: M17.12 Unilateral primary osteoarthritis, left knee (principal) | CPT/HCPCS: 20610; 99212; J1010 ==

== ENCOUNTER 2023-10-12 12:42 | Outpatient (REF) | payer OTHER, SELFPAY ==
--- NOTE | 2023-10-12 12:48 | EMG_ITS ---
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 PROCEDURE: The procedure was explained to the patient/caregiver, and informed consent was obtained. The patient sat on bed.? Trapezius muscles were cleansed with betadine in the usual sterile manner. A 30 gauge needle electrode was used. Muscle Units per site Number of sites Units per muscle Right upper trapezius 15 3 45 Left upper trapezius 15 1 15 ? ? EMG-guidance was used during the injection. A total of 60 units injected. 40 units wastage. Vial size: 100 units per vial?? Dilution: 100 units per 1 ml of preservative free saline The patient tolerated the procedure well without complications. The patient was observed for a few minutes, before being discharged with post procedure instructions. CODING: CPT code: 79800 neck, exclud larynx, modifier 50 bilateral Wastage: Guidance code: 09966 EMG guidance for chemodenervation J code: Botox J0585? NDC code:? [id number] Lot #: [id number] Expiration date: [facility]
== END 2023-10-12 12:43 | disposition home or self-care (01) ==
LOC: HO.NEURO 12:42
PROVIDERS: PCP Internal Medicine; Visit Provider Physical Medicine & Rehabilitation
DX: G24.3 Spasmodic torticollis (principal)
CPT/HCPCS: 64612; 64616; 95874; J0585

== ENCOUNTER → 2023-10-12 12:48 | Outpatient (BNV) | payer OTHER, SELFPAY | PROVIDERS: PCP Internal Medicine; Visit Provider Physical Medicine & Rehabilitation | DX: G24.3 Spasmodic torticollis (principal) | CPT/HCPCS: 64616; 95874 ==

== ENCOUNTER 2023-10-13 08:37 | Outpatient (REF) | payer OTHER, SELFPAY | END 2023-10-13 08:38 | disposition home or self-care (01) | LOC: HO.HOSX 08:37 | PROVIDERS: Visit Provider Physical Medicine & Rehabilitation | DX: Z13.89 Encounter for screening for other disorder (principal) ==

== ENCOUNTER 2023-10-14 08:37 | Outpatient (REF) | payer OTHER, SELFPAY ==
--- NOTE | ~2023-10-14 | XR_ITS ---
EXAMINATION: XR LUMBOSACRAL SPINE CLINICAL INFORMATION: Back pain, unspecified. COMPARISON: None available. Please note, due to [facility] [employer] contractual, systems, and staffing issues, an [facility] radiologist was not available for review and dictation of this case until 11/29/2023. TECHNIQUE: Three views of the lumbosacral spine. FINDINGS: No fracture or suspicious lytic or blastic bone lesion. There is normal coronal alignment, and normal lordosis. There is a 4 mm anterolisthesis L4 on L5. This appears based on degenerative facet changes. Disc spaces are largely preserved. No significant narrowing. Degenerative facet changes L4-5 and L5-S1 noted bilaterally. No SI joint abnormality noted. Sacrum is intact. No soft tissue abnormalities. XR/XR lumbar spine 2-3V IMPRESSION: 1. No acute findings lumbosacral spine. 2. 4 mm degenerative anterolisthesis L4 on L5. 3. Degenerative facet changes noted at L4-5 and L5-S1. Electronically signed by: Benny Hein MD 11/29/2023 01:21 PM EDT
== END 2023-10-14 08:38 | disposition home or self-care (01) ==
LOC: HO.HOSX 08:37
PROVIDERS: Visit Provider Physical Medicine & Rehabilitation
DX: M54.59 Other low back pain (principal)
CPT/HCPCS: 72100; 99212

== ENCOUNTER 2023-10-14 10:29 | Outpatient (AMB) | payer OTHER, SELFPAY ==
--- NOTE | 2023-10-14 10:38 | MHC.OFFVIS ---
Intake Visit Reasons: Newprob-B/L lower back pain Intake Note: Coleen is a 67 year old female who presents to the office today for a new problem visit with complaints B/L lower back pain. Cervical spine X-ray done 05/12/23. Patient reports that she has had ongoing lower back pain for about 2 years now. She was being treated with [facility] who was doing lumbar spine injections, most recent being about 1.5 years ago. Pain is felt across the entire lower back and occasionally will radiate down bilateral legs. The left leg is worse than the right. She utilizes heat and ice application which does provide her with releif. Pain increases with prolonged standing and walking. Allergies cat dander [CAT] Allergy (Unknown, Verified 10/14/23 10:44) PND,COUGH dog dander [DOG] Allergy (Unknown, Verified 10/14/23 10:44) PND,COUGH cats and dogs Allergy (Unknown, Uncoded 10/14/23 10:44) Rash HPI Comments Details: Patient known to me for neck pain, spasmodic torticollis, being treated with botulinum toxin injections. Here for separate issue of lower back pain. Chronic back pain for at least 2 years. Started after a fall, no vertebral fracture at that time. Followed with [facility]. MRI done at [place]. She had epidural and facet injections, helped. Then she had, 1 1/2 years ago, procedure at [facility] which possibly was ablation the way patient described. Good relief until 2 months ago. Pain now across lower back, sometimes only would go to left posterior thigh. No numbness on feet. [facility] Medical History (Updated 10/14/23 @ 11:00 by Soledad Flaherty MD) Lumbar facet joint pain History of high blood pressure Social History Alcohol intake: never Patient Tobacco Use Status: Never used Tobacco Current occupational status: retired Current occupation: right hand dominant Physical Exam Constitutional: Patient appears to be in no acute distress, well nourished and well developed. Patient was appropriately conversant and oriented. Good historian. MSK: No specific abnormalities found on inspection of the spine and all extremities. Tender lower lumbar facets. Nontender paraspinals, quadratus lumborum, SI or GT. Lumbar ROM was full. Straight-leg raising test negative. FABERE test positive back pain. Strength is 5/5 in all muscle groups tested. No increased tone noted. Neurological: Neurologic examination of the upper and lower extremities was nonfocal with intact sensation, muscle stretch reflexes and without focal motor deficits . Nguyen?s negative bilaterally. Babinski was down going bilaterally. Clonus was negative. Gait is non-antalgic without loss of balance. Results Reviewed Results Reviewed: Lumbar x-rays done today showed mild spondylolisthesis L4-5. Disc spaces were preserved. Assessment & Plan Assessment & Plan (1) Lumbar facet joint pain: Code(s): M54.59 - Other low back pain Category: Medical Plan She is doing well post Botox injection for cervical/spasmodic torticollis. Next injection is in 3 months. We will do a telehealth follow-up 1 month prior to that. As for her back pain, appears to be lumbar facet mediated pain. She used to go to [facility] and sounds like she received radiofrequency ablation. Seems to have lasted her at least 18 months but pain started coming back 2 months ago. It is nonradicular, axial back pain. Informed her unfortunately that I do not do such procedures and I would have to refer her to our pain management. She would like to transfer her care to [place]. Assessment and plan discussed with patient, and patient was agreeable. All questions were answered thoroughly. Soledad Flaherty MD, JENNIFER Board Certified, [place] Board [employer] Medicine and Rehabilitation (ABPMR) Board Certified, [place] Board [employer] Electrodiagnostic Medicine (ABEM) Orders: Orders XR lumbar spine 2-3V Today M54.9 - Dorsalgia, unspecified Referrals Pain Management Referral M54.59 - Other low back pain Coding Level of Care Code Est Pt Level 3 (61126) Diagnoses Lumbar facet joint pain M54.59
== END 2023-10-14 11:07 | disposition home or self-care (01) ==
PROVIDERS: PCP Internal Medicine; Visit Provider Physical Medicine & Rehabilitation
DX: M54.59 Other low back pain (principal)
CPT/HCPCS: 99213

== ENCOUNTER → 2023-10-14 10:33 | Outpatient (BNV) | payer OTHER, SELFPAY | PROVIDERS: Visit Provider Radiology Diagnostic Radiology | DX: M43.16 Spondylolisthesis, lumbar region (principal) | CPT/HCPCS: 72100 ==

== ENCOUNTER 2024-05-22 13:46 | Outpatient (AMB) | payer OTHER, SELFPAY ==
--- NOTE | 2024-05-22 13:53 | MHC.OFFVIS ---
Vital Signs 05/22/24 14:01 Height 5 ft Weight 174 lb BMI 34.0 Intake Visit Reasons: Inj-Left knee injection-last inj 08/27/23 Intake Note: Coleen is a 68 year old female who presents today for a follow up visit for her left knee OA. Patient received a left knee injection on 08/27/23 reports it offered relief. She would like to repeat this injection today. Allergies cat dander [CAT] Allergy (Unknown, Verified 05/22/24 14:01) PND,COUGH dog dander [DOG] Allergy (Unknown, Verified 05/22/24 14:01) PND,COUGH cats and dogs Allergy (Unknown, Uncoded 10/14/23 10:44) Rash HPI HPI Inj-Left knee injection-last inj 08/27/23: Details: Ms. Lugo is a 68-year-old female who presents to the office today for left knee pain. Last cortisone injection was 08/27/2023. Patient had great relief with this injection would like to repeat injection today. [facility] Medical History (Updated 10/14/23 @ 11:00 by Soledad Flaherty MD) Lumbar facet joint pain History of high blood pressure Social History Alcohol intake: never Patient Tobacco Use Status: Never used Tobacco Current occupational status: retired Current occupation: right hand dominant Physical Exam Vital Signs: BMI result Body Mass Index 34.0 Office Procedures AMB Joint Injection/Aspiration Joint Injection/Aspiration Primary Site: left knee Prep: site was prepped using aseptic technique, ethochloride spray was applied and injection warnings given Injected: 80 mg of, DepoMedrol, with 8 mL of (2% plain lido ) and in the joint Approach Used: anterolateral Procedure: The patient tolerated the procedure well, but had some pain with the injection and there was some relief with the local anesthesia Coding 60385 - Large joint Procedure code (CPT) selection complete Assessment & Plan Assessment & Plan (1) Osteoarthritis of left knee: Code(s): M17.12 - Unilateral primary osteoarthritis, left knee Category: Medical Qualifiers: Osteoarthritis type: unspecified Qualified Code(s): M17.12 - Unilateral primary osteoarthritis, left knee Plan The patient was offered a cortisone injection in the left knee with 80 mg of DepoMedrol. The patient was explained the risks, benefits, and alternatives to receiving this injection. After receiving consent for the injection, the patient had the procedure done while in the office today. The patient tolerated the procedure well with no complications. Follow-up will be p.r.n., or sooner if needed Coding Level of Care Code Est Pt Level 3 (40500) Diagnoses Osteoarthritis of left knee, unspecified osteoarthritis type M17.12 Osteoarthritis type: unspecified CPT Codes Coding - 82783 Large joint: 22635 - Large joint ([id number])
[2024-05-22 14:01] VITALS: BMI 34.0
== END 2024-05-22 15:48 | disposition home or self-care (01) ==
LOC: HO.HOS 13:47
PROVIDERS: Visit Provider Physician Assistant
DX: M17.12 Unilateral primary osteoarthritis, left knee (principal)
CPT/HCPCS: 20610

== ENCOUNTER → 2024-05-22 13:46 | Outpatient (BNVA) | payer OTHER, SELFPAY | PROVIDERS: Visit Provider Physician Assistant | DX: M17.12 Unilateral primary osteoarthritis, left knee (principal) | CPT/HCPCS: 20610; J1010; J2003 ==

== ENCOUNTER 2024-08-25 13:16 | Outpatient (AMB) | payer OTHER, SELFPAY ==
--- NOTE | 2024-08-25 13:27 | MHC.OFFVIS ---
Intake Visit Reasons: Left knee injection-last inj 05/22/24 Intake Note: While the office today, the patient reports that she has been more active recently as her was diagnosed with dementia. Her previous injections lasted her roughly a year but this most recent injection. Wore off sooner due to her activity level. Allergies cat dander (CAT) Allergy (Unknown, Verified 05/22/24 14:01) PND,COUGH dog dander (DOG) Allergy (Unknown, Verified 05/22/24 14:01) PND,COUGH cats and dogs Allergy (Unknown, Uncoded 10/14/23 10:44) Rash HPI HPI Left knee injection-last inj 05/22/24: Details: Ms. Lugo is a 68-year-old female who presents to the office today for left knee pain due to osteoarthritis. Her last cortisone injection was 05/22/2024. She reports that her was recently diagnosed with dementia and has been more active. Prior injections have lasted roughly 1 year but due to her activity level this most recent injection only lasted her 3 months. [facility] Medical History (Updated 10/14/23 @ 11:00 by Soledad Flaherty MD) Lumbar facet joint pain History of high blood pressure Social History Alcohol intake: never Patient Tobacco Use Status: Never used Tobacco Current occupational status: retired Current occupation: right hand dominant Review of Systems Const All systems reviewed & are unremarkable except as noted in HPI and below Office Procedures AMB Joint Injection/Aspiration Joint Injection/Aspiration Primary Site: left knee Prep: site was prepped using aseptic technique, ethochloride spray was applied and injection warnings given Injected: 80 mg of, DepoMedrol, with 8 mL of (2% plain lido ) and in the joint Approach Used: anterolateral Procedure: The patient tolerated the procedure well, but had some pain with the injection and there was some relief with the local anesthesia Coding 39998 - Large joint Procedure code (CPT) selection complete Assessment & Plan Assessment & Plan (1) Osteoarthritis of left knee: Code(s): M17.12 - Unilateral primary osteoarthritis, left knee Category: Medical Qualifiers: Osteoarthritis type: unspecified Qualified Code(s): M17.12 - Unilateral primary osteoarthritis, left knee Plan While the office today, the patient reports that she has been more active recently as her was diagnosed with dementia. Her previous injections lasted her roughly a year but this most recent injection wore off in roughly 3 months due to her activity level. The patient was offered a cortisone injection in the left knee with 80 mg of DepoMedrol. The patient was explained the risks, benefits, and alternatives to receiving this injection. After receiving consent for the injection, the patient had the procedure done while in the office today. The patient tolerated the procedure well with no complications. Follow-up will be PRN, or sooner if needed Coding Level of Care Code Est Pt Level 3 (37793) Diagnoses Osteoarthritis of left knee, unspecified osteoarthritis type M17.12 Osteoarthritis type: unspecified CPT Codes Coding - 45101 Large joint: 87322 - Large joint ([id number])
== END 2024-08-25 13:33 | disposition home or self-care (01) ==
LOC: HO.HOS 13:16
PROVIDERS: Visit Provider Physician Assistant
DX: M17.12 Unilateral primary osteoarthritis, left knee (principal)
CPT/HCPCS: 20610; 99213

== ENCOUNTER → 2024-08-25 13:16 | Outpatient (BNVA) | payer OTHER, SELFPAY | PROVIDERS: Visit Provider Physician Assistant | DX: M17.12 Unilateral primary osteoarthritis, left knee (principal) | CPT/HCPCS: 20610; 99212; J1010; J2003 ==

== ENCOUNTER 2024-11-28 13:20 | Outpatient (AMB) | payer OTHER, SELFPAY ==
--- NOTE | 2024-11-28 13:55 | A.OFFVIS_ITS ---
Intake Visit Reasons: Inj-Lt knee injection-last inj 08/25/24 Intake Note: Coleen is a 69 year old female who presents today for a repeat injection for her left knee, last injection 08/25/2024. Allergies cat dander (CAT) Allergy (Unknown, Verified 05/22/24 14:01) PND,COUGH dog dander (DOG) Allergy (Unknown, Verified 05/22/24 14:01) PND,COUGH cats and dogs Allergy (Unknown, Uncoded 10/14/23 10:44) Rash HPI HPI Inj-Lt knee injection-last inj 08/25/24: Details: Ms. Lugo presents to the office today for chronic left knee pain from osteoarthritis. She receives routine cortisone injections which helped to alleviate her pain. Last cortisone injection was on 08/25/2024. She would like to repeat injections while in the office today. [facility] Medical History (Updated 10/14/23 @ 11:00 by Soledad Flaherty MD) Lumbar facet joint pain History of high blood pressure Social History Alcohol intake: never Patient Tobacco Use Status: Never used Tobacco Current occupational status: retired Current occupation: right hand dominant Review of Systems Const All systems reviewed & are unremarkable except as noted in HPI and below Physical Exam Const General: cooperative, healthy appearing and no acute distress Resp Effort & Inspection: normal respiratory effort and able to speak in complete sentences Extrem Other: Left knee: Normal to inspection. No ecchymosis, erythema, or joint effusion. No tenderness to palpation to the medial or lateral joint lines. Full knee extension and flexion. NVI. Office Procedures AMB Joint Injection/Aspiration Joint Injection/Aspiration Primary Site: left knee Prep: site was prepped using aseptic technique, ethochloride spray was applied and injection warnings given Injected: 40 mg of, with 3 mL of, 1% plain lidocaine, 0.25% bupivacaine, in the joint and decadron Approach Used: anterolateral Procedure: The patient tolerated the procedure well, but had some pain with the injection and there was some relief with the local anesthesia Coding 99240 - Large joint Procedure code (CPT) selection complete Assessment & Plan Assessment & Plan (1) Osteoarthritis of left knee: Code(s): M17.12 - Unilateral primary osteoarthritis, left knee Category: Medical Qualifiers: Osteoarthritis type: unspecified Qualified Code(s): M17.12 - Unilateral primary osteoarthritis, left knee Plan Ms. Jarrell is an 83-year-old right-hand dominant female who presents to the office today for evaluation of a left shoulder injury that she sustained on 11/06/2024. Patient reports that she lost her balance when she was standing near the sink and landed on her left shoulder. Patient reports that she has a history of vertigo. Her pain is located along the lateral aspect of the shoulder. She has been taking Tylenol and gabapentin which was prescribed by Rheumatology with mild relief. Patient had x-rays that were-01-30 of the left revealed a left clavicle fracture. The patient was offered a cortisone injection in the right knee. The patient was explained the risks, benefits, and alternatives to receiving this injection. After receiving consent for the injection, the patient had the procedure done while in the office today. The patient tolerated the procedure well with no complications. Follow-up will be PRN, or sooner if needed Coding Level of Care Code Est Pt Level 3 (32384) Diagnoses Osteoarthritis of left knee, unspecified osteoarthritis type M17.12 Osteoarthritis type: unspecified CPT Codes Coding - 48295 Large joint: 64077 - Large joint ([id number])
--- OUTSIDE RECORDS SUMMARY | 2024-11-28 16:22 | XMS_ITS | Patient Health Record ---
Author Organization [facility] Address [address] [place] [address] Care Team Providers Care Set Key Driver Name Role Phone Tala SERVIN, Sherman Primary Care Provider Sean Olivier [phone] Reason For Referral No Information Plan Of Treatment No Information
--- OUTSIDE RECORDS SUMMARY | 2024-11-28 16:22 | XMS_ITS | Clinical Summary ---
Author Organization [facility] Address [address] [place] [address] Care Team Providers Care Territory Sales Manager Name Role Phone Andree Rebolledo MD Primary Care Prov ider Allergies Active Allergy Reactions Criticality Noted Date Comments Duloxetine Hcl 11/30/2018 Cymbalta Nausea and abdominal pain Fluoxetine 11/30/2018 Prozac vomiting Other 01/12/2014 Dogs Cats Medications cholecalciferol (VITAMIN D-3) 25 mcg (1,000 unit) tablet Take by mouth. 9 Active rosuvastatin (CRESTOR) 10 mg tablet Take 1 Tablet by mouth daily. 4 Active cetirizine (ZyrTEC) 10 mg tablet Take 1 tablet (10 mg total) by mouth 1 (one) time each day. 90 each 3 5 07/12/19 26 Active cyclobenzaprine (FLEXERIL) 10 mg tabletIndicatio ns:Acute pain of both shoulders Take 1 tablet (10 mg total) by mouth 2 (two) times a day if needed for muscle spasms. 30 tablet 5 Active losartan (COZAAR) 25 mg tablet Take 1 tablet (25 mg total) by mouth 1 (one) time each day. 90 each 3 5 09/19/19 26 Active fluticasone propionate (FLONASE) 50 mcg/actuation nasal spray Administer 2 sprays into each nostril 1 (one) time each day. Shake gently. Before first use, prime pump. After use, clean tip and replace cap. 16 g 2 Active Active Problems Problem Noted Date Diagnosed Date Elevated blood pressure reading 04/21/2022 Overview (02/07/2024): Last Assessment & Plan: BP elevated, recommend f/u with PCP Vaginal atrophy 04/21/2022 Overview (02/07/2024): Last Assessment & Plan: Discussed with patient that dyspareunia is likely related to vaginal atrophy. Rx Vaginal estrogen provided. Patient instructed on use. Lymphedema 02/09/2019 Overview (02/07/2024): See's lyphedema clinc every two weeks. Starting lyphedema therapy. Prediabetes 12/13/2017 Morbid obesity due to excess calories ([facility] V24, [facility] V28) 11/26/2016 Varicose veins of both lower extremities 016 Sprain of sacroiliac ligament 03/29/2015 Sprain of thoracic region 03/29/2015 Vitamin D deficiency 06/19/2014 Allergic rhinitis 06/16/2013 Hyperlipidemia 06/16/2013 Assessment & Plan (07/11/2024 1:22 PM EDT): Orders: Comprehensive metabolic panel; Future Lipid panel with reflex to direct LDL; Future Hemoglobin A1c; Future Fibromyalgia 05/15/2013 Cervicalgia 04/17/2013 Chronic joint pain 04/17/2013 Anxiety 02/22/2012 Edema 02/22/2012 Hypertension 02/05/2012 Assessment & Plan (07/11/2024 1:22 PM EDT): Orders: Comprehensive metabolic panel; Future Lipid panel with reflex to direct LDL; Future Hemoglobin A1c; Future Encounters Date Type Department Care Team Description 09/18/2024 10:00 AM EDT Consult Adult Medicine [address] [phone] Andree Rebolledo MD Preop cardiovascular exam (Primary Dx) 09/05/2024 Telephone Adult Medicine [address] [phone] Andree Rebolledo MD from Last 3 Months Immunizations Name Administration Dates Next Due Influenza Quadravalent, MDCK , 0.5ml, preservative free (Flucelvax) 6mo and older 02/05/2021,11/30/2018,12/13/2017 Influenza Quadravalent, MDCK , 0.5ml, with preservative (Flucelvax) 6mo and older 11/26/2016 Influenza trivalent, 0.5mL ( Fluad) 65yo and older 12/27/2023,01/27/2023,11/14/2021 Influenza trivalent, 0.5mL ( Fluzone High-dose) 65yo and older 11/17/2024 Influenza trivalent, 0.5mL, preservative free (Fluarix; FluLaval; Fluzone) ages 6mo and older (Afluria) 3 years and older 01/24/2020,12/25/2015,01/06/2013,03/14 Moderna SARS-CoV-2 COVID-19, mRNA, LNP-S, preservative free 07/06/2020 PPD Test 06/22/2017, 7,05/08/2015,06/19,06/16/2013 Pneumococcal conjugate 20 va lent (Prevnar 20, PCV 20) 2mo and older 12/27/2023 Pneumococcal polysaccharide 23 valent (Pneumovax 23) 2yo and older 12/13/2017 Tdap Tetanus diptheria acell ular pertussis (Boostrix; Adacel) 7yo and older 07/27/2022,03/14/2012 Surgical History Surgery Date Site/Laterality Comments TUBAL LIGATION PROCEDURE: HISTORICAL TUBAL LIGATION OTHER SURGICAL HISTORY PROCEDURE: ---- OTHER ----; COMMENT: removal sublingual gland COLONOSCOPY 2008 PROCEDURE: HISTORICAL COLONOSCOPY; COMMENT: due 09/2018 COLONOSCOPY 09/2019 PROCEDURE: HISTORICAL COLONOSCOPY; COMMENT: Warner Watts, normal per patient Medical History Medical History Date Comments Osteoarthritis DX:Osteoarthriti s Anxiety DX:Anxiety HTN (hypertension) DX:HTN (hyper tension) Edema DX:Edema Fibromyalgia 05/15/2013 DX:Fibromyalgia Hyperlipidemia DX:Hyperlipidemi a Prediabetes DX:Prediabetes Lymphedema DX:Lymphedema Family History Medical History Relation Name Comments Uterine cancer Mother htn, dm, uter ine cancer at age 72 Breast cancer Sister Colon cancer Neg Hx Ovarian cancer Neg Hx Relation Name Status Comments Mother Sister Social History Tobacco Use Types Packs/Day Years Used Date Smoking Tobacco: Never Smokeless Tobacco: Never Tobacco Cessation:Counseling Given: Not Answered Alcohol Use Standard Drinks/Week Comments No 0 (1 standard drink = 0.6 oz pur e alcohol) Comments Unknown Sex and Gender Information Value Date Recorded Sex Assigned at Not on file Legal Sex Female 2:25 PM EDT Gender Identity Not on file Sexual Orientation Not on file Obstetrics History Para Term AB IAB SAB Ectopic Multiple Livin g Live Births 2 2 2 2 2 Date Outcome GA Total Labor Labor/2nd/3rd Weight Sex Type Anes PTL Noemi A1 A5 Name Clin Term Vag-S pont Living Term Vag-S pont Living Last Filed Vital Signs Vital Sign Reading Time Taken Comments Blood Pressure 135/80 09/18/2024 10:11 AM EDT Pulse 58 09/18/2024 9:38 AM EDT Temperature 36.6 C (97.8 F) 09/18/2024 9:38 AM EDT Respiratory Rate 14 09/18/2024 9:38 AM EDT Oxygen Saturation - - Inhaled Oxygen Concentration - - Weight 79.4 kg (175 lb) 09/18/2024 9:38 AM EDT Height 152.4 cm (5') 09/18/2024 9:38 AM EDT Body Mass Index 34.18 09/18/2024 9:38 AM EDT Plan of Treatment Upcoming Encounters Date Type Department Care Team (Late st Contact Info) Description 11/29/2024 11:00 AM EDT [facility]ointment [facility] [address] [phone] 12/11/2024 1:00 PM EDT Office Visit Adult Medicine [facility] [address] [place] [address] Mackenzie Morin PA [address] [place], [place] Health Maintenance Due Date Last Done Comments Breast Cancer Screening 1955 Osteoporosis Screening (Bone Density Screening) 08/27/2023 Social Influencers of Health Screening 08/27/2023 Zoster Vaccines (2 of 2) 11/30/2023 10/05/2023 Depression Screening 03/08/2024 10/07/2023 Falls Risk Assessment 10/06/2024 10/07/2023 Medicare Annual Wellness Visit 10/06/2024 10/07/2023 COVID-19 Vaccine ( season) 2024 03/05/2021, 07/06/2020, 06/08/2020 Hypertension/CHF/CAD Annual BMP Blood Test 09/18/2025 09/18/2024, 07/22/2022 Colorectal Cancer Screening: Colonoscopy 09/05/2029 09/06/2019 Cholesterol Screening (Lipid Panel) 09/18/2029 09/18/2024, 07/22/2022 RSV Immunization Adult Patients (1 - 1-dose 75+ series) 10/14/2031 DTaP,Tdap,and Td Vaccines (3 - Td or Tdap) 07/27/2032 07/27/2022, 03/14/2012 Hepatitis C Screening Completed 06/27/2016 Pneumococcal Vaccine: 50+ Years Completed 12/27/2023, 12/13/2017 Influenza Vaccine Completed 11/17/2024, , 01/27/2023, Additional history exists HIB Vaccines Aged Out No longer eligi ble based on patient's age to complete this topic HPV Vaccines Aged Out No longer eligi ble based on patient's age to complete this topic Hepatitis A Vaccines Aged Out No long er eligible based on patient's age to complete this topic Hepatitis B Vaccines Aged Out No long er eligible based on patient's age to complete this topic IPV Vaccines Aged Out No longer eligi ble based on patient's age to complete this topic MMR Vaccines Aged Out No longer eligi ble based on patient's age to complete this topic Meningococcal ACWY Vaccine Aged Out N o longer eligible based on patient's age to complete this topic Meningococcal B Vaccine Aged Out No l onger eligible based on patient's age to complete this topic RSV Immunization Patients Under 20 months Aged Out No longer eligible based on patient's age to complete this topic Varicella Vaccines Aged Out No longer eligible based on patient's age to complete this topic Procedures Procedure Name Priority Date/Time Associated Diagnosis Comments ECG 12-LEAD TRACING ONLY Routine 09/18/2024 9:56 AM EDT Preop cardiovascular exam COMPREHENSIVE METABOLIC PANEL Routine 09/18/2024 8:47 AM EDT Primary hypertension Mixed hyperlipidemia LIPID PANEL WITH REFLEX TO DIRECT LDL Routine 09/18/2024 8:47 AM EDT Primary hypertension Mixed hyperlipidemia HEMOGLOBIN A1C Routine 09/18/2024 8:47 AM EDT Primary hypertension Mixed hyperlipidemia DEPRESSION SCREENING Routine 10/07/2023 FALLS RISK ASSESSMENT Routine 10/07/2023 COLONOSCOPY Routine 09/06/2019 HEPATITIS C SCREENING Routine 06/27/2016 from Last 3 Months or Most Recently Relevant to Health Maintenance Results * ECG 12 lead Tracing Only (09/18/2024 9:56 AM EDT) 09/18/2024 9:56 AM EDT Andree Rebolledo MD ECG ORDERABLES Fi nal Result * (ABNORMAL) Lipid panel with reflex to direct LDL (09/18/2024 8:47 AM EDT) Cholesterol 247(H) 0 - 200 mg/dL LAB CHEMISTRY METHOD 09/18/2024 12:23 PM EDT [facility] Triglycerides 85 0 - 150 mg/dL LAB CHEMISTRY METHOD 09/18/2024 12:23 PM EDT [facility] HDL 88 >=40 mg/dL LAB CHEMISTRY METHOD 09/18/2024 12:23 PM EDT [facility] LDL Calculated 142(H) 0 - 100 mg/dL LAB CHEMISTRY METHOD 09/18/2024 12:23 PM EDT [facility] VLDL Cholesterol Khoi 17 mg/dL LAB CHEMISTRY METHOD 09/18/2024 12:23 PM EDT [facility] Non HDL Chol. (LDL+VLDL) 159(H) <145 mg/dL LAB CHEMISTRY METHOD 09/18/2024 12:23 PM EDT [facility] Chol/HDL Ratio 2.8 0.0 - 4.4 LAB CHEMISTRY METHOD 09/18/2024 12:23 PM EDT [facility] Blood Venous blood specimen / Unknown Venipuncture / Unknown 09/18/2024 8:47 AM EDT 09/18/2024 8:47 AM EDT Andree Rebolledo MD LAB BLOOD ORDERABL ES Final Result Performing Organization Address [facility]/ZIP Co de Phone Number [facility] [address] [place] [address], [place] [phone] * (ABNORMAL) Hemoglobin A1c (09/18/2024 8:47 AM EDT) Hemoglobin A1C 6.6(H) <6.5 % LAB CHEMISTRY METHOD 09/18/2024 12:49 PM EDT [facility] Mean Bld Glu Estim. 143 mg/dL LAB CHEMISTRY METHOD 09/18/2024 12:49 PM EDT [facility] Blood Venous blood specimen / Unknown Venipuncture / Unknown 09/18/2024 8:47 AM EDT 09/18/2024 8:47 AM EDT us Andree Rebolledo MD LAB BLOOD ORDERABL ES Final Result [facility] [address] [place] [address], [place] [phone] * (ABNORMAL) Comprehensive metabolic panel (09/18/2024 8:47 AM EDT) Sodium 138 133 - 145 mmol/L LAB CHEMISTRY METHOD 09/18/2024 12:22 PM [facility] Potassium 4.1 3.5 - 5.5 mmol/L LAB CHEMISTRY METHOD 09/18/2024 12:22 PM [facility] Chloride 104 96 - 110 mmol/L LAB CHEMISTRY METHOD 09/18/2024 12:22 PM [facility] CO2 28 21 - 32 mmol/L LAB CHEMISTRY METHOD 09/18/2024 12:22 PM [facility] Anion Gap 6 3 - 11 LAB CHEMISTRY METHOD 09/18/2024 12:22 PM [facility] Glucose 127(H) 70 - 100 mg/dL LAB CHEMISTRY METHOD 09/18/2024 12:22 PM [facility] BUN 19 5 - 25 mg/dL LAB CHEMISTRY METHOD 09/18/2024 12:22 PM [facility] Creatinine 0.70 0.50 - 1.10 mg/dL LAB CHEMISTRY METHOD 09/18/2024 12:22 PM [facility] eGFR 95 >=60 mL/min/1. 73m2 LAB CHEMISTRY METHOD 09/18/2024 12:22 PM [facility] Comment:Calculation based on the Chronic Kidney Disease Epidemiology Collaboration (CKD-EPI) equation refit without adjustment for race. BUN/Creatinine Ratio 27.1 LAB CHEMISTRY METHOD 09/18/2024 12:22 PM [facility] Calcium 9.4 8.5 - 10.5 mg/dL LAB CHEMISTRY METHOD 09/18/2024 12:22 PM [facility] AST (SGOT) 15 10 - 42 unit/L LAB CHEMISTRY METHOD 09/18/2024 12:22 PM [facility] ALT (SGPT) 26 10 - 60 unit/L LAB CHEMISTRY METHOD 09/18/2024 12:22 PM [facility] Alkaline Phosphatase 105 42 - 121 unit/L LAB CHEMISTRY METHOD 09/18/2024 12:22 PM EDT [facility] Total Protein 7.6 6.0 - 8.0 g/dL LAB CHEMISTRY METHOD 09/18/2024 12:22 PM EDT [facility] Albumin 3.8 3.2 - 5.0 g/dL LAB CHEMISTRY METHOD 09/18/2024 12:22 PM EDT [facility] Total Bilirubin 0.4 0.0 - 1.4 mg/dL LAB CHEMISTRY METHOD 09/18/2024 12:22 PM EDT [facility] Blood Venous blood specimen / Unknown Venipuncture / Unknown 09/18/2024 8:47 AM EDT 09/18/2024 8:47 AM EDT Andree Rebolledo MD LAB BLOOD ORDERABL ES Final Result [facility] [address] [place] [address], [place] [phone] * Falls Risk Assessment (10/07/2023) [facility] Falls Risk Assessment abstracted [facility] Provider HEALTH MAINTENANCE Final Result * Depression Screening (10/07/2023) [facility] Depression Screening abstracted [facility] Provider HEALTH MAINTENANCE Final Result * Colonoscopy (09/06/2019) [facility] Colonoscopy no interpretation , abstracted Anatomical Region Laterality Modality Other [facility] Provider HEALTH MAINTENANCE Final Result * Hepatitis C Screening (06/27/2016) [facility] Hepatitis C Screening abstracted [facility] Provider HEALTH MAINTENANCE Final Result from Last 3 Months or Most Recently Relevant to Health Maintenance Insurance [facility] MEDIC[facility] Member Subscriber Plan / Payer (Ef fective 2023-Present) Name:Coleen Lugo Relation to Subscriber:Self Name:Coleen Lugo Payer ID:[id number] Group ID:[id number] Type:Not on file Address: [place] [address] [address] [phone] Care Teams Territory Sales Manager Relationship Specialty Start Date End Date Andree Rebolledo MD [address] [place] [phone] PCP - General 10/06/21
== END 2024-11-28 14:06 | disposition home or self-care (01) ==
LOC: HO.HOS 13:20
PROVIDERS: Visit Provider Physician Assistant
DX: M17.12 Unilateral primary osteoarthritis, left knee (principal)
CPT/HCPCS: 20610; 99213

== ENCOUNTER → 2024-11-28 13:20 | Outpatient (BNVA) | payer OTHER, SELFPAY | PROVIDERS: Visit Provider Physician Assistant | DX: M17.12 Unilateral primary osteoarthritis, left knee (principal) | CPT/HCPCS: 20610; 99212; J0665; J1100; J2003 ==

== ENCOUNTER 2025-03-05 10:53 | Outpatient (AMB) | payer OTHER, SELFPAY ==
--- NOTE | 2025-03-05 10:55 | MHC.OFFVIS ---
Intake Visit Reasons: left knee injection-last inj 11/28/24 Intake Note: Coleen is a 69 year old female who presents today for a repeat injection for her left knee, last injection 11/28/24. Today patient reports injection had helped with her pain and is requesting to repeat injection. Allergies cat dander (CAT) Allergy (Unknown, Verified 03/05/25 10:56) PND,COUGH dog dander (DOG) Allergy (Unknown, Verified 03/05/25 10:56) PND,COUGH cats and dogs Allergy (Unknown, Uncoded 03/05/25 10:56) Rash Medication List - Last Reconciled 03/05/25 by Afshin Alicea PA-C cholecalciferol (vitamin D3) 10 mcg PO DAILY losartan 25 mg PO DAILY rosuvastatin 10 mg PO DAILY HPI HPI left knee injection-last inj 11/28/24: Details: 69-year-old female presents to the office today for left knee pain. She has routine steroid injections in the left knee which provided significant relief for her arthritic pain. Currently she is having discomfort with walking and stair use. [facility] Medical History (Updated 10/14/23 @ 11:00 by Soledad Flaherty MD) Lumbar facet joint pain History of high blood pressure Social History Alcohol intake: never Patient Tobacco Use Status: Never used Tobacco Current occupational status: retired Current occupation: right hand dominant Review of Systems Const All systems reviewed & are unremarkable except as noted in HPI and below Physical Exam Const General: cooperative, healthy appearing and no acute distress Resp Effort & Inspection: normal respiratory effort and able to speak in complete sentences Extrem Other: Left knee: Normal to inspection. No ecchymosis, erythema, or joint effusion. No tenderness to palpation to the medial or lateral joint lines. Full knee extension and flexion. NVI. Office Procedures AMB Joint Injection/Aspiration Joint Injection/Aspiration Primary Site: Left Knee Prep: site was prepped using aseptic technique, ethochloride spray was applied and injection warnings given Injected: 40 mg of, Decadron, with 3 mL of, 1% plain Lidocaine, 0.25% Bupivacaine and in the joint Approach Used: anterolateral Procedure: The patient tolerated the procedure well and there was some relief with the local anesthesia Coding 43633 - Glenohumeral/Tronchanteric Bursa/Intraarticular Procedure code (CPT) selection complete Assessment & Plan Assessment & Plan (1) Osteoarthritis of left knee: Code(s): M17.12 - Unilateral primary osteoarthritis, left knee Category: Medical Qualifiers: Osteoarthritis type: unspecified Qualified Code(s): M17.12 - Unilateral primary osteoarthritis, left knee Plan The patient was offered a cortisone injection in the left knee with 40 mg of Decadron. The patient was explained the risks, benefits, and alternatives to receiving this injection. After receiving consent for the injection, the patient had the procedure done while in the office today. The patient tolerated the procedure well with no complications. Follow-up will be PRN, or sooner if needed Coding Level of Care Code Est Pt Level 3 (37991) Add On Problem Visit Only Diagnoses Osteoarthritis of left knee, unspecified osteoarthritis type M17.12 Osteoarthritis type: unspecified CPT Codes Coding - Joint 7: 15338 - Glenohumeral/Tronchanteric Bursa/Intraarticular ([id number])
--- OUTSIDE RECORDS SUMMARY | 2025-03-05 12:34 | XMS_ITS | Patient Health Record ---
Author Organization [facility] Address [address] [place] [address] Care Team Providers Care Communication Specialist Name Role Phone Tala SERVIN, Sherman Primary Care Provider Sean Olivier [phone] Reason For Referral No Information Plan Of Treatment No Information
--- OUTSIDE RECORDS SUMMARY | 2025-03-05 12:34 | XMS_ITS | Clinical Summary ---
Author Organization Patient Business Ser [facility] Address [address] [place] [address] Care Team Providers Care Camera Prototyping Engineer Name Role Phone Andree Rebolledo MD Primary [...] for muscle spasms. 30 tablet 5 Active fluticasone propionate (FLONASE) 50 mcg/actuation nasal spray Administer 2 sprays into each nostril 1 (one) time each day. Shake gently. Before first use, prime pump. After use, clean tip and replace cap. 16 g 2 5 Active losartan (COZAAR) 25 mg tablet Take 1 tablet (25 mg total) by mouth 1 (one) time each day. 90 each 5 12/06/19 26 Active Active Problems Problem Noted Date Diagnosed [...] 12/13/2017 Morbid obesity due to excess calories 11/26/2016 Varicose veins of both lower extremities [...] to direct LDL; Future Hemoglobin A1c; Future Immunizations Immunization Administration Dates Next Due Influenza Quadravalent, MDCK [...] valent (Pneumovax 23) 2yo and older 12/13/2017 SARS-COV-2 (COVID-19) Vaccin e, Unspecified 11/17/2024 Tdap Tetanus diptheria acell ular pertussis (Boostrix; [...] 09/18/2024 9:38 AM EDT Plan of Treatment Health Maintenance Due Date Last Done Comments Breast Cancer Screening 1955 Osteoporosis Screening (Bone Density Screening) 08/27/2023 Social Influencers of Health Screening 08/27/2023 Zoster Vaccines (2 of 2) 11/30/2023 10/05/2023 Depression Screening 03/08/2024 10/07/2023 Falls Risk Assessment 10/06/2024 10/07/2023 Medicare Annual Wellness Visit 10/06/2024 10/07/2023 COVID-19 Vaccine ( season) 2025 11/17/2024, 03/05/2021, 07/06/2020, Additional history exists Hypertension/CHF/CAD Annual BMP Blood Test 09/18/2025 09/18/2024, [...] Procedure Name Priority Date/Time Associated Diagnosis Comments COMPREHENSIVE METABOLIC PANEL Routine 09/18/2024 8:47 AM EDT Primary hypertension Mixed hyperlipidemia LIPID PANEL WITH REFLEX TO DIRECT LDL Routine 09/18/2024 8:47 AM EDT Primary hypertension Mixed hyperlipidemia DEPRESSION SCREENING Routine 10/07/2023 FALLS RISK ASSESSMENT Routine 10/07/2023 COLONOSCOPY Routine 09/06/2019 HEPATITIS C SCREENING Routine 06/27/2016 from Last 3 Months or Most Recently Relevant to Health Maintenance Results * (ABNORMAL) Lipid panel with reflex to direct LDL (09/18/2024 8:47 AM EDT) [facility] Cholesterol 247(H) 0 - 200 mg/dL LAB CHEMISTRY METHOD 09/18/2024 12:23 PM EDT [facility] Triglycerides 85 0 - 150 mg/dL LAB CHEMISTRY METHOD 09/18/2024 12:23 PM EDT [facility] HDL 88 >=40 mg/dL LAB CHEMISTRY METHOD 09/18/2024 12:23 PM [facility] LDL Calculated 142(H) 0 - 100 mg/dL LAB CHE[facility]STR[facility] VLDL Cholesterol Khoi 17 mg/dL LAB CHEMISTRY METHOD 09/18/2024 12:23 PM [facility] Non HDL Chol. (LDL+VLDL) 159(H) <145 mg/dL LAB CHEMISTRY METHOD 09/18/2024 12:23 PM [facility] Chol/HDL Ratio 2.8 0.0 - 4.4 LAB CHEMISTRY METHOD 09/18/2024 12:23 PM [facility] Blood Venous blood specimen / Unknown Venipuncture / Unknown 09/18/2024 8:47 AM EDT 09/18/2024 8:47 AM EDT us Andree Rebolledo MD LAB BLOOD ORDERABL ES Final Result [facility] [address] [place] [address], * (ABNORMAL) Comprehensive metabolic panel (09/18/2024 8:47 AM EDT) Sodium 138 133 - 145 mmol/L LAB CHEMISTRY METHOD 09/18/2024 12:22 PM [facility] Potassium 4.1 3.5 - 5.5 mmol/L LAB CHEMISTRY METHOD 09/18/2024 12:22 PM [facility] Chloride 104 96 - 110 mmol/L LAB CHEMISTRY METHOD 09/18/2024 12:22 PM T [facility] CO2 28 21 - 32 mmol/L LAB CHEMISTRY METHOD 09/18/2024 12:22 PM [facility] Anion Gap 6 3 - 11 LAB CHEMISTRY METHOD 09/18/2024 12:22 PM [facility] Glucose 127(H) 70 - 100 mg/dL LAB CHEMISTRY METHOD 09/18/2024 12:22 PM [facility] BUN 19 5 - 25 mg/dL LAB CHEMISTRY METHOD 09/18/2024 12:22 PM [facility] Creatinine 0.70 0.50 - 1.10 mg/dL LAB CHEMISTRY METHOD 09/18/2024 12:22 PM [facility] eGFR 95 >=60 mL/min/1. 73m2 LAB CHEMISTRY METHOD 09/18/2024 12:22 PM [facility] Comment:Calculation based on the Chronic Kidney Disease Epidemiology Collaboration (CKD-EPI) equation refit without adjustment for race. BUN/Creatinine Ratio 27.1 LAB CHEMISTRY METHOD 09/18/2024 12:22 PM [facility] Calcium 9.4 8.5 - 10.5 mg/dL LAB CHEMISTRY METHOD 09/18/2024 12:22 PM [facility] AST (SGOT) 15 10 - 42 unit/L LAB CHEMISTRY METHOD 09/18/2024 12:22 PM [facility] ALT (SGPT) 26 10 - 60 unit/L LAB CHEMISTRY METHOD 09/18/2024 12:22 PM [facility] Alkaline Phosphatase 105 42 - 121 unit/L LAB CHEMISTRY METHOD 09/18/2024 12:22 PM [facility] Total Protein 7.6 6.0 - 8.0 g/dL LAB CHEMISTRY METHOD 09/18/2024 12:22 PM [facility] Albumin 3.8 3.2 - 5.0 g/dL LAB CHEMISTRY METHOD 09/18/2024 12:22 PM [facility] Total Bilirubin 0.4 0.0 - 1.4 mg/dL LAB CHEMISTRY METHOD 09/18/2024 12:22 PM EDT [facility] Blood Venous blood specimen / Unknown Venipuncture / Unknown 09/18/2024 8:47 AM EDT 09/18/2024 8:47 AM EDT Andree Rebolledo MD LAB BLOOD ORDERABL ES Final Result [facility] [address] [place] [address], [place] [phone] * Falls Risk Assessment (10/07/2023) Pathologist [facility] Falls Risk Assessment abstracted Historical Provider HEALTH MAINTENANCE Final Result * Depression Screening (10/07/2023) Pathologist [facility] Depression Screening abstracted Historical Provider HEALTH MAINTENANCE Final Result * Colonoscopy (09/06/2019) Pathologist [facility] Colonoscopy no interpretation , abstracted Anatomical Region Laterality Modality Other [facility] Provider HEALTH MAINTENANCE Final Result * Hepatitis C Screening (06/27/2016) Pathologist [facility] Hepatitis C Screening abstracted [facility] Provider HEALTH MAINTENANCE Final Result from Last 3 Months or Most Recently Relevant to Health Maintenance Insurance [facility] Member Subscriber Plan / Payer (Ef fective 2023-Present) Name:Coleen Lugo Relation to Subscriber:Self Name:Coleen Lugo Payer ID:[id number] Group ID:[id number] Type:Not on file Address: [address] [place] [phone] Care Teams Camera Prototyping Engineer Relationship Specialty Start Date End Date Andree Rebolledo MD [address] [place] [phone] PCP - General 10/06/21
== END 2025-03-05 12:06 | disposition home or self-care (01) ==
LOC: HO.HOS 10:53
PROVIDERS: Visit Provider Physician Assistant
DX: M17.12 Unilateral primary osteoarthritis, left knee (principal)
CPT/HCPCS: 20610; 99213

== ENCOUNTER → 2025-03-05 10:53 | Outpatient (BNVA) | payer OTHER, SELFPAY | PROVIDERS: Visit Provider Physician Assistant | DX: M17.12 Unilateral primary osteoarthritis, left knee (principal) | CPT/HCPCS: 20610; 99212; J0665; J1100; J2003 ==